=== PATIENT | female | born 1990 | race Caucasian/White ===

== ENCOUNTER 2017-04-13 05:37 | Inpatient (IN) | payer MEDICAID ==
--- NOTE | 2017-04-12 08:51 | HP ---
DATE OF ADMISSION: 04/13/2017 ADMISSION DIAGNOSES: 38 and 0/7th week intrauterine , twin gestation, history of previous section with desire for repeat section. HISTORY OF PRESENT ILLNESS: The patient is a 27-year-old, 6, para 3-0-2-3 white female, with a diamniotic twin gestation, who has been given an NATASHA of 04/27/2017, placing her at 38 and 0/7th weeks gestational age upon admission for an elective repeat section. The patient's NATASHA is set by certain last menstrual started which started on 07/21/2016, lasted for approximately 5 days. She was using no control at the time of conception. Cycles are regular, at q.28 days. The patient is confirmed to be at 38 and 0/7th weeks by multiple ultrasounds that were done through the . She is admitted for an elective repeat section having had 3 sections previously, 1st one being for failure to progress and the others being repeat sections. She has been assessed of the procedure, its risks, benefits, alternatives of care and followup. She appears to understand, wishes to proceed, and has signed the consent. 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 She has had 3 full-term children, largest baby being 9 pounds 2 ounces. She has had 2 miscarriages, one at 12 weeks' and one at 8 weeks in 2008 and 2012 respectively. Her sections occurred in 2009, 2010, and 2013 in [place], [place]. Her course has been significant for the fact that she has a twin gestation and has been followed closely with growth ultrasounds early on and testing during the last 8 weeks. She declined genetic testing. Her [place] depression screen score on 01/03/2017 was 2 out of a total of 30. She is group B Strep negative. She has a history of genital herpes and has been on acyclovir 400 mg p.o. t.i.d. since 36 weeks. She has not had any outbreaks during the course of the . She has been a participant in the centering program. Her testing has been unremarkable. Her course showed a 1st visit on 10/13/2014. Weight at that time was 185.4 pounds. She has gained 36.19 pounds over the course of the . Her vital signs have been stable throughout the . Fundal height growth has been appropriate for twin gestation. LABORATORY TESTING: Her blood is O positive. Antibody screen was negative. First visit lab showed a hemoglobin of 12.1 and a platelet of 283,000. Rubella titer showed immunity. RPR is nonreactive. Hepatitis B and HIV assays were negative as were her GC and chlamydia assays at first visit. Second trimester labs showed a hemoglobin which was mildly decreased to 11.2 g/dL. Platelets were normal at 228,000. One-hour glucose tolerance test was 101 - normal. Group B Strep screen was negative. ALLERGIES: None. CURRENT MEDICATIONS: 1. Acyclovir 400 mg p.o. t.i.d. prophylactically for history of genital herpes. 2. tablets daily. 3. DHEA tabs daily. 4. Folic acid 400 mcg supplemental daily. 5. Ferrous sulfate 325 mg daily. PAST MEDICAL HISTORY: Spontaneous miscarriage x2 as stated above. PAST SURGICAL HISTORY: 1. section x3, 2009, 2010, and 2013. 2. Torsion of right ovary with removal at 14 weeks during her 2nd . FAMILY HISTORY: Mother and father are alive and well. Maternal grandmother is alive with a history of diabetes and hypertension. Maternal grandfather is alive with heart problems and a history of heart attack. Paternal grandmother and paternal grandfather's medical history are not known. No significant abnormalities related to bleeding, blood clotting, anesthesia, . SOCIAL HISTORY: The patient is single. 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 Her significant other is Ramírez De La Rosa. They live in [place], [place]. She does not use any significant amounts of alcohol, drugs, or tobacco. She has a history of smoking previously and during the early part of the . REVIEW OF SYSTEMS: SKIN: Negative. CARDIOVASCULAR: No chest pain or exercise intolerance. RESPIRATORY: No infectious symptoms or shortness of breath. BREASTS: Changes associated with - patient does plan to nurse. GI: Negative. : Changes associated with with twins. MUSCULOSKELETAL: Some edema noted throughout the latter part of the in bilateral lower extremities. NEUROLOGICAL: Negative. PHYSICAL EXAMINATION: GENERAL: The patient is a well-developed, well-nourished, pleasant female, who appears somewhat tired but in no acute distress. She is alert and oriented x3 and appears to be a good historian. VITAL SIGNS: Blood pressure is 134/70, weight is 221.2 with first visit weight at 185.4 pounds. heart rates were 130 and 132. Her height is 5 feet 5 inches. SKIN: Warm and dry without lesions. HEENT, NECK, AND BACK: Within normal limits. LUNGS: Clear with good breath sounds in all lung guevara. CARDIOVASCULAR: Shows regular rate and rhythm without murmurs. BREASTS: Exam is deferred having been done at first visit, found to be normal. ABDOMEN: Protuberant with with fundal height of 45 cm. Baby is found to be in a vertex-vertex presentation at the time of her last ultrasound 2 days prior to this section. It had been consistently in that position. GENITAL: Done at the time of her group B Strep screen, not recently done. EXTREMITIES: Some edema, trace in amount, otherwise unremarkable. ASSESSMENT: 1. Diamniotic twin gestation at 38 and 0/7th weeks gestational age upon admission for an elective repeat section. The procedure, risks, benefits, alternatives of care and followup are discussed in detail with the patient. She appears to understand, wishes to proceed. 2. Risk factors for the include the following: History of section x3, distance from the hospital, increased weight, twin gestation. 3. History of miscarriage x2. 4. Rh positive status. 5. History of genital herpes simplex virus but with no outbreaks during the course of the and the patient is presently on prophylaxis with acyclovir. PLAN: 1. Repeat lower uterine segment transverse section through Pfannenstiel skin incision under spinal block, scheduled for 04/13/[address] [facility]. The procedure, risks, benefits, possible complications, and followup were discussed with the patient. This risk factor is listed, presented especially in light of the patient's previous 3 sections. Increased risk of placenta accreta also discussed with the patient. 2. DVT prophylaxis with SCDs. 3. Infection prophylaxis with Ancef 2 g IV preop. 4. Laboratory testing to consist of CBC and type and screen. MMODAL /[id number]
[~2017-04-13 05:37] MED LIST: Lactated Ringers 1,000 ML IV SCH; Sodium Chloride 0.9% 10 ML Syringe FLUSH PRN
[2017-04-13] MEDS ORDERED: Metoclopramide 10 MG/2 ML SDV IVPUSH ONE (06:00)
[2017-04-13] MEDS ORDERED: Citric Acid/Sodium Citrate Solution 30 ML Cup PO ONE (06:00)
[2017-04-13] MEDS ORDERED: Pneumococcal Polyvalent-23 Vaccine 0.5 ML SDV IM ONE (06:25)
[2017-04-13] MEDS ORDERED: Bupivacaine 0.5% 30 ML SDV ONE (06:26)
[2017-04-13] MEDS ORDERED: ceFAZolin 2 GM in Premix Bag 1 BAG IV ONE (06:30)
[2017-04-13] MEDS ORDERED: Morphine PF 10 MG/10 ML SDV ONE (06:40)
[2017-04-13] MEDS ORDERED: Oxytocin 10 Units/1 ML SDV ONE (06:42)
[2017-04-13] MEDS ORDERED: ceFAZolin 1 GM Vial ONE (06:42)
[2017-04-13] MEDS ORDERED: Lactated Ringers 2,000 ML ONE (06:42)
[2017-04-13] MEDS ORDERED: Dexamethasone 4 MG/ML SDV ONE (06:42)
[2017-04-13] MEDS ORDERED: Ondansetron 4 MG/2 ML SDV ONE (06:42)
[2017-04-13] MEDS ORDERED: Ketorolac 30 MG/ML SDV ONE (06:42)
[2017-04-13] MEDS ORDERED: Oxytocin/Lactated Ringers 10 UNIT/1,000 ML BAG IV SCH (07:00)
--- NOTE | 2017-04-13 07:09 | PCM.PREANE ---
Preanesthetic Assessment - Anesthesia/Transfusion/Family Hx Anesthesia History: Prior Anesthesia Without Reaction Family History of Anesthesia Reaction: No Transfusion History: No Prior Transfusion(s) - Review of Systems General: No Symptoms Pulmonary: No Symptoms Cardiovascular: No Symptoms Gastrointestinal: No Symptoms Neurological: No Symptoms Other: Reports: None - Physical Assessment NPO Status Date: 04/13/17 NPO Status Time: 05:00 (Sip of Tea) Pulse: 94 O2 Sat by Pulse Oximetry: 95 Respiratory Rate: 16 Blood Pressure: 135/85 Temperature: 36.6 C Height: 1.7 m Weight: 101.151 kg ASA Class: 2 Mental Status: Alert & Oriented x3 Airway Class: Mallampati = 1 Dentition: Reports: Normal Dentition Thyro-Mental Finger Breadths: 3 Mouth Opening Finger Breadths: 3 ROM/Head Extension: Full Lungs: Clear to Auscultation, Normal Respiratory Effort Cardiovascular: Regular Rate, Regular Rhythm - Lab Values: Laboratory Last Values WBC 9.45 K/mm3 (3.98-10.04) 04/11/17 15:14 RBC 4.06 M/mm3 (3.98-5.22) 04/11/17 15:14 Hgb 12.1 gm/L (11.2-15.7) 04/11/17 15:14 Hct 36.7 % (34.1-44.9) 04/11/17 15:14 MCV 90.4 fl (79.4-94.8) 04/11/17 15:14 MCH 29.8 pg (25.6-32.2) 04/11/17 15:14 MCHC 33.0 g/dl (32.2-35.5) 04/11/17 15:14 RDW Std Deviation 41.9 fL (36.4-46.3) 04/11/17 15:14 Plt Count 231 K/mm3 (182-369) 04/11/17 15:14 MPV 9.3 fl (9.4-12.3) L 04/11/17 15:14 Neut % (Auto) 72.6 % (34.0-71.1) H 04/11/17 15:14 Lymph % (Auto) 20.5 % (19.3-51.7) 04/11/17 15:14 Nye % (Auto) 5.8 % (4.7-12.5) 04/11/17 15:14 Eos % (Auto) 0.7 (0.7-5.8) 04/11/17 15:14 Baso % (Auto) 0.1 % (0.1-1.2) 04/11/17 15:14 Neut # (Auto) 6.85 K/mm3 (1.56-6.13) H 04/11/17 15:14 Lymph # (Auto) 1.94 K/mm3 (1.18-3.74) 04/11/17 15:14 Nye # (Auto) 0.55 K/mm3 (0.24-0.36) H 04/11/17 15:14 Eos # (Auto) 0.07 K/mm3 (0.04-0.36) 04/11/17 15:14 Baso # (Auto) 0.01 K/mm3 (0.01-0.08) 04/11/17 15:14 Blood Type O POSITIVE 04/11/17 15:14 Gel Antibody Screen Negative 04/11/17 15:14 - Allergies Allergies/Adverse Reactions: Allergies Allergy/AdvReac Type Severity Reaction Status Date / Time No Known Allergies Allergy Verified 04/13/17 05:46 - Anesthesia Plan Pre-Op Medication Ordered: Antacids - Acknowledgements Anesthesia Type Planned: Spinal Pt an Appropriate Candidate for the Planned Anesthesia: Yes Alternatives and Risks of Anesthesia Discussed w Pt/Guardian: Yes Pt/Guardian Understands and Agrees with Anesthesia Plan: Yes PreAnesthesia Questionnaire 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 Ovary torsion with removal - SUBSTANCE USE Smoking Status *Q: Former Smoker Tobacco Use Within Last Twelve Months: Cigarettes Recreational Drug Use History: No - HOME MEDS Home Medications: Home Meds Acyclovir 400 mg PO TID 03/19/17 [History] Ferrous Sulfate [Iron] 325 mg PO DAILY 03/19/17 [History] Folic Acid 0.4 mg PO DAILY 03/19/17 [History] Pnv No.122/Iron/Folic Acid [ Multi Tablet] 1 each PO DAILY 03/19/17 [ History] Prasterone (DHEA)/Calcium Carb [DHEA] 1 each PO DAILY 03/19/17 [History] - CURRENT (IN HOUSE) MEDS Current Meds: Current Medications Lactated Ringer's (Ringers, Lactated) 1,000 mls @ 125 mls/hr IV ASDIRECTED JOANIE Last Admin: 04/13/17 06:27 Dose: 125 mls/hr Oxytocin/Lactated Ringer's (Pitocin In Lr 10 Units/1,000 Ml) 10 unit in 1,000 mls @ 100 mls/hr IV ASDIRECTED JOANIE PRN Reason: Protocol Sodium Chloride (Saline Flush) 10 ml FLUSH ASDIRECTED PRN PRN Reason: Keep Vein Open Discontinued Medications Bupivacaine HCl (Marcaine 0.5%) Confirm Administered Dose 30 ml .ROUTE .STK-MED ONE Stop: 04/13/17 06:27 Cefazolin Sodium (Ancef) Confirm Administered Dose 2 gm .ROUTE .STK-MED ONE Stop: 04/13/17 06:43 Citric Acid/Sodium Citrate (Bicitra Solution) 30 ml PO ONETIME ONE Stop: 04/13/17 06:01 Last Admin: 04/13/17 06:48 Dose: 30 ml Dexamethasone (Dexamethasone) Confirm Administered Dose 4 mg .ROUTE .STK-MED ONE Stop: 04/13/17 06:43 Cefazolin Sodium/Dextrose 2 gm (/ Premix) 50 mls @ 100 mls/hr IV ONETIME ONE Stop: 04/13/17 06:59 Lactated Ringer's (Ringers, Lactated) Confirm Administered Dose 2,000 mls @ as directed .ROUTE .STK-MED ONE Stop: 04/13/17 06:43 Ketorolac Tromethamine (Toradol) Confirm Administered Dose 30 mg .ROUTE .STK- MED ONE Stop: 04/13/17 06:43 Metoclopramide HCl (Reglan) 10 mg IVPUSH ONETIME ONE Stop: 04/13/17 06:01 Last Admin: 04/13/17 06:49 Dose: 10 mg Ondansetron HCl (Zofran) Confirm Administered Dose 4 mg .ROUTE .STK-MED ONE Stop: 04/13/17 06:43 Oxytocin (Pitocin) Confirm Administered Dose 20 unit .ROUTE .STK-MED ONE Stop: 04/13/17 06:43 Pneumococcal Polyvalent Vaccine (Pneumovax 23) 0.5 ml IM .ONCE ONE Stop: 04/13/17 06:26
[2017-04-13] MEDS ORDERED: ePHEDrine 50 MG/ML SDV IVPUSH PRN ×2 (08:17→10:38)
[2017-04-13] MEDS ORDERED: diphenhydrAMINE 50 MG/ML SDV IVPUSH PRN ×2 (08:17→10:38)
[2017-04-13] MEDS ORDERED: ePHEDrine 50 MG/ML SDV ONE (08:18)
[2017-04-13] MEDS ORDERED: Phenylephrine 10 MG in Sodium Chloride 0.9% 99 ML IV SCH (08:30)
[2017-04-13] MEDS ORDERED: diphenhydrAMINE 50 MG/ML SDV ONE (08:35)
[2017-04-13] MEDS ORDERED: Lactated Ringers 1,000 ML ONE (08:53)
--- NOTE | 2017-04-13 08:55 | PCM.POSTAN ---
POST ANESTHESIA ASSESSMENT - MENTAL STATUS Mental Status: Alert, Oriented - VITAL SIGNS Pulse Rate: 75 SaO2: 100 Resp Rate: 20 Blood Pressure: 118/56 Temperature: 36.9 C - RESPIRATORY Respiratory Status: Respiratory Rate WNL, Airway Patent, O2 Saturation Stable, Supplemental Oxygen - CARDIOVASCULAR CV Status: Pulse Rate WNL, Blood Pressure Stable - GASTROINTESTINAL GI Status: No Symptoms - PAIN Pain Score: 0 - POST OP HYDRATION Hydration Status: Adequate & Stable - OBSERVATIONS Free Text/Narrative:: PVCs noted once intraop and once in PACU. Bigeminal, Unifocal, Jil denies any symptoms with PVCs. Dr. Louis aware.
--- NOTE | 2017-04-13 09:08 | PCM.SN ---
- Free Text/Narrative Note: Dr. Bishop called regarding bigeminal PVCs. Advised a 12 lead EKG and basic metabolic panel be obtained. Orders submitted. I will notify her when BMP is done.
--- NOTE | 2017-04-13 09:09 | PCM.OPNOTE ---
- General Post-Op/Procedure Note Date of Surgery/Procedure: 04/13/17 Operative Procedure(s): Repeat lower uterine segment transverse section through Pfannenstiel skin incision under spinal block. Findings: Patient had a diamniotic, dichorionic twin gestation with both twins in a vertex presentation. Both amniotic sacs contained clear amniotic fluid. The umbilical cords both had 3 vessels. Cervix was noted to be dilated approximately 2 cm which was adequate to allow egress of blood. Estimated blood loss was 500 mL. Surgery duration 55 minutes. Baby [id number] at 0757 hrs. on 04/13/2017-Apgars 8 and 8 -weight 6 lbs. 2 oz. Baby [id number] at 0757 hrs. on 04/13/2017-Apgars 8 and 8-weight 6 lbs. 0 oz. Pre Op Diagnosis: 1. 38-0/7 week intrauterine . 2. Twin gestation. 3. History of previous section 3 Post-Op Diagnosis: Same Anesthesia Technique: Spinal Other Anesthesia Type: Marcaine 0.5%local Primary Surgeon: Mauro Louis Secondary Surgeon: Clifford Oneal Anesthesia Provider: Danielle Looney Family [employer] Consumer Sciences Professor: Jyothi Torres Family [employer] Consumer [employer] Professor: Michelle Cain Reason Family And Consumer Sciences Professor Was Necessary: Retraction, patient safety, quality of care Role of Family And Consumer Sciences Professor: Retraction Pathology: Placentas Fluid Replacement, Intraop: 2,500 Output, Urine Amount: 100 EBL in mLs: 500 Drain/Tube Comments:: Indwelling bladder catheter Complications: None Condition: Good Free Text/Narrative:: Surgery duration: 55 minutes Procedure: Patient was transferred to the room and placed in a sitting position. Spinal anesthesia was administered. After confirmation of adequate anesthesia patient was placed in a supine position with a wedge under her right side to facilitate left lateral positioning. The patient was prepped and draped in usual fashion after Ybarra catheter was already placed . The anesthetic was checked and found to be adequate. 20 mL of Marcaine 0.5% was injected locally in the Pfannenstiel incision site. The Pfannenstiel skin incision was then made carried down to skin subcutaneous and fascial layers. The fascia was then undermined superiorly and inferiorly to allow for adequate operating room the recti muscles midline and preperitoneal fat was bluntly dissected. Peritoneal cavity was entered longitudinally. The vesicouterine peritoneum was then incised transversely and bladder flap was developed. Myometrium was incised transversely to the level of the amniotic sac. This incision was extended bilaterally in a blunt fashion. The first amniotic sac was then ruptured resulting clear amniotic fluid. A hand is placed in the low uterine segment and baby A's head was brought forth through the incision. The baby was completely delivered using fundal pressure in a routine fashion. The nose and mouth were bulb suctioned. Baby's cord was clamped x2 with straight clamp and cut and baby was handed off to attending gambling counsellor Dr Flores. The second amniotic sac was then ruptured resulting in clear amniotic fluid. Twin B presented in a cephalic presentation was delivered in a routine fashion with fundal pressure. Nose and mouth were bulb suctioned. Cord was clamped clamp 2 with curved hemostats and cut. Baby was handed off to Dr. Flores attending gambling counsellor. Both placentas were expressed after cord blood was obtained. Uterus was then exteriorized to allow for easier closure. The cervix was assessed and found to be dilated adequately to allow egress of blood. The uterus was closed in 2 layers. The first layer a running locked suture of 0 Monocryl, the second layer a running locked vertical mattress suture of 0 Monocryl. [id number] suture was placed at the left incision to control 1 bleeder. Hemostasis confirmed at this time. Sponge instrument needle counts are correct. The uterus was returned to the abdominal cavity and lateral gutters were cleared of blood. Once again sponge needle counts are correct. The anterior abdominal wall was closed with a #1 PDS suture from angle to angle. The subcutaneous area was found to be free of any bleeders. interrupted sutures of 3-0 Monocryl were used to reapproximate the subcutaneous layer.Skin was closed with a running subcuticular stitch of 3-0 Monocryl in a vertical mattress suture fashion using a Khanh needle. Prineo mesh/glue was then applied to further approximate the incision. It should be noted that patient received 2 g of Ancef preoperatively for infection prophylaxis and had Pitocin infused after delivery of the placenta to facilitate uterine contraction. She also had sequential compression stockings in place for DVT prophylaxis. Patient was discharged from the operating room in satisfactory condition.
[2017-04-13] MEDS ORDERED: Magnesium Sulfate/Water 2 GM in Premix Bag 1 BAG IV ONE (10:18)
[2017-04-13] MEDS ORDERED: Potassium Chloride 10% 20 MEQ/15 ML Soln 15 ML UD Cup PO ONE (10:19)
[2017-04-13] MEDS ORDERED: Dextrose 5%-Lactated Ringers 1,000 ML IV SCH (10:38)
[2017-04-13] MEDS ORDERED: Lanolin 100% Cream 7 GM Tube TOP PRN (10:38)
[2017-04-13] MEDS ORDERED: Naloxone 0.4 MG/ML SDV IVPUSH PRN (10:38)
[2017-04-13] MEDS ORDERED: Docusate Sodium 100 MG Cap PO PRN (10:38)
[2017-04-13] MEDS ORDERED: Ondansetron 4 MG/2 ML SDV IV PRN (10:38)
--- NOTE | 2017-04-13 11:12 | PCM.CONSN ---
- General Info Date of Service: 04/13/17 Admission Dx/Problem (Free Text): 27 year old female s/p C section at 38 weeks 0/7 days, G6, P 3-0-2-3 post op went into ventricular bigeminy. She subsequently went back into sinus rhythm before being taken back to her room. Lab studies were ordered by the DATA ENTRY REPRESENTATIVE who called the hospitalist service as requested by the primary. A ECG had been ordered, additionally BMP, Mg were also ordered. Her potassium and magnesium are being replaced. Follow up labs will be checked after supplementation. The patient reports no cardiac history; no recent change in meds; no change in diet. Functional Status: Reports: Urinating - Review of Systems General: Reports: Weakness HEENT: Reports: No Symptoms Pulmonary: Reports: No Symptoms Cardiovascular: Reports: No Symptoms Gastrointestinal: Reports: No Symptoms Genitourinary: Reports: No Symptoms Musculoskeletal: Reports: No Symptoms Skin: Reports: No Symptoms Neurological: Reports: No Symptoms Psychiatric: Reports: No Symptoms - Patient Data Vitals - Most Recent: Last Vital Signs Temp 37.1 C 04/13/17 09:43 Pulse 75 04/13/17 08:55 Resp 14 04/13/17 09:55 BP 131/82 04/13/17 09:55 Pulse Ox 95 04/13/17 09:55 Weight - Most Recent: 101.151 kg I&O - Last 24 Hours: Intake & Output 04/12/17 04/13/17 04/13/17 22:59 06:59 14:59 Intake Total 2800 Output Total 350 Balance 2450 Lab Results Last 24 Hours: Laboratory Results - last 24 hr 04/13/17 04/13/17 Range/Units 09:20 09:20 Sodium 140 (136-145) mEq/L Potassium 3.6 (3.5-5.1) mEq/L Chloride 106 (98-107) mEq/L Carbon Dioxide 25 (21-32) mEq/L Anion Gap 12.6 (5-15) BUN 7 (7-18) mg/dL Creatinine 0.7 (0.55-1.02) mg/dL Est Cr Clr Drug Dosing 118.43 mL/min Estimated GFR (MDRD) > 60 (>60) mL/min BUN/Creatinine Ratio 10.0 L (14-18) Glucose 101 (74-106) mg/dL Calcium 8.1 L (8.5-10.1) mg/dL Magnesium 1.5 L (1.8-2.4) mg/dl Med Orders - Current: Current Medications Diphenhydramine HCl (Benadryl) 25 mg IVPUSH Q6H PRN PRN Reason: Itching or Nausea Docusate Sodium (Colace) 100 mg PO Q12H PRN PRN Reason: Constipation Emollient Ointment (Lansinoh Hpa) 0 gm TOP ASDIRECTED PRN PRN Reason: Sore Nipples Ephedrine Sulfate (Ephedrine Sulfate) 5 mg IVPUSH SEECOMMENT PRN PRN Reason: Other Magnesium Sulfate 2 gm/ Premix 50 mls @ 25 mls/hr IV ONETIME ONE Stop: 04/13/17 12:17 Dextrose/Lactated Ringer's (Dextrose 5%-Lactated Ringers) 1,000 mls @ 125 mls/ hr IV ASDIRECTED JOANIE Stop: 04/13/17 18:37 Ibuprofen (Motrin) 800 mg PO Q8H JOANIE Naloxone HCl (Narcan) 0.1 mg IVPUSH SEECOMMENT PRN PRN Reason: Respiratory Depression Ondansetron HCl (Zofran) 4 mg IV Q4H PRN PRN Reason: Nausea/Vomiting Oxycodone/Acetaminophen (Percocet 325-5 Mg) 2 tab PO Q4H PRN PRN Reason: Pain (moderate 4-6) Prenat Multivit/[place]/Iron/Folic Ac ( Plus Iron) 1 each PO DAILY [facility] Simethicone (Simethicone) 80 mg PO PCBED [facility] Discontinued Medications Bupivacaine HCl (Marcaine 0.5%) Confirm Administered Dose 30 ml .ROUTE .STK-MED ONE Stop: 04/13/17 06:27 Last Admin: 04/13/17 07:52 Dose: 20 ml Cefazolin Sodium (Ancef) Confirm Administered Dose 2 gm .ROUTE .STK-MED ONE Stop: 04/13/17 06:43 Citric Acid/Sodium Citrate (Bicitra Solution) 30 ml PO ONETIME ONE Stop: 04/13/17 06:01 Last Admin: 04/13/17 06:48 Dose: 30 ml Dexamethasone (Dexamethasone) Confirm Administered Dose 4 mg .ROUTE .STK-MED ONE Stop: 04/13/17 06:43 Diphenhydramine HCl (Benadryl) 25 mg IVPUSH Q6H PRN PRN Reason: Pruritis Diphenhydramine HCl (Benadryl) Confirm Administered Dose 50 mg .ROUTE .STK-MED ONE Stop: 04/13/17 08:36 Ephedrine Sulfate (Ephedrine Sulfate) Confirm Administered Dose 50 mg .ROUTE .STK-MED ONE Stop: 04/13/17 08:19 Ephedrine Sulfate (Ephedrine Sulfate) 5 mg IVPUSH ASDIRECTED PRN PRN Reason: Hypotension Glycopyrrolate () Confirm Administered Dose 1 mg .ROUTE .STK-MED ONE Stop: 04/13/17 08:18 Cefazolin Sodium/Dextrose 2 gm (/ Premix) 50 mls @ 100 mls/hr IV ONETIME ONE Stop: 04/13/17 06:59 Lactated Ringer's (Ringers, Lactated) 1,000 mls @ 125 mls/hr IV ASDIRECTED JOANIE Last Admin: 04/13/17 06:27 Dose: 125 mls/hr Oxytocin/Lactated Ringer's (Pitocin In Lr 10 Units/1,000 Ml) 10 unit in 1,000 mls @ 100 mls/hr IV ASDIRECTED JOANIE PRN Reason: Protocol Lactated Ringer's (Ringers, Lactated) Confirm Administered Dose 2,000 mls @ as directed .ROUTE .STK-MED ONE Stop: 04/13/17 06:43 Phenylephrine HCl 10 mg/ (Sodium Chloride) 100 mls @ 24 mls/hr IV TITRATE JOANIE; 40 MCG/MIN PRN Reason: Protocol Lactated Ringer's (Ringers, Lactated) Confirm Administered Dose 1,000 mls @ as directed .ROUTE .STK-MED ONE Stop: 04/13/17 08:54 Ketorolac Tromethamine (Toradol) Confirm Administered Dose 30 mg .ROUTE .STK- MED ONE Stop: 04/13/17 06:43 Metoclopramide HCl (Reglan) 10 mg IVPUSH ONETIME ONE Stop: 04/13/17 06:01 Last Admin: 04/13/17 06:49 Dose: 10 mg Ondansetron HCl (Zofran) Confirm Administered Dose 4 mg .ROUTE .STK-MED ONE Stop: 04/13/17 06:43 Oxytocin (Pitocin) Confirm Administered Dose 20 unit .ROUTE .STK-MED ONE Stop: 04/13/17 06:43 Pneumococcal Polyvalent Vaccine (Pneumovax 23) 0.5 ml IM .ONCE ONE Stop: 04/13/17 06:26 Potassium Chloride (Potassium Chloride Solution) 20 meq PO ONETIME ONE Stop: 04/13/17 10:20 Sodium Chloride (Saline Flush) 10 ml FLUSH ASDIRECTED PRN PRN Reason: Keep Vein Open - Exam Quality Assessment: Supplemental Oxygen, DVT Prophylaxis General: Sedated HEENT: Pupils Equal, Pupils Reactive, EOMI Neck: Trachea Midline, No JVD Lungs: Normal Respiratory Effort Cardiovascular: Regular Rate, Regular Rhythm GI/Abdominal Exam: Normal Bowel Sounds, Soft, Non-Tender (minimal tenderness), No Organomegaly, No Distention (Female) Exam: Deferred Back Exam: Normal Inspection Extremities: Normal Inspection Skin: Warm Neurological: No New Focal Deficit Psy/Mental Status: Other (sedated) Consult PN Assessment/Plan POD#: 0 Procedures: Procedures ASSAY OF PROGESTERONE (09/15/16) BLOOD TYPING SEROLOGIC ABO (10/13/16) BLOOD TYPING SEROLOGIC RH(D) (10/13/16) CHORIONIC GONADOTROPIN TEST (09/15/16) CHYLMD TRACH DNA AMP PROBE (10/13/16) COMPLETE CBC W/AUTO DIFF WBC (01/17/17) BIOPHYS PROFIL W/O NST (04/04/17) NON-STRESS TEST (04/04/17) GLUCOSE TEST (01/17/17) HEPATITIS B SURFACE AG IA (10/13/16) N.GONORRHOEAE DNA AMP PROB (10/13/16) OB US >/= 14 WKS ADDL FETUS (12/20/16) OB US >/= 14 WKS SNGL FETUS (12/20/16) OB US FOLLOW-UP PER FETUS (04/04/17) RBC ANTIBODY SCREEN (10/13/16) ROUTINE VENIPUNCTURE (01/17/17) RUBELLA ANTIBODY (10/13/16) STREP B DNA AMP PROBE (03/28/17) SYPHILIS TEST NON-TREP QUAL (10/13/16) TRANSVAGINAL US OBSTETRIC (09/15/16) URINALYSIS AUTO W/O SCOPE (03/28/17) URINALYSIS AUTO W/SCOPE (10/04/16) URINE CULTURE/COLONY COUNT (10/13/16) (1) Status post section SNOMED Code(s): 125283048 Code(s): Z98.891 - HISTORY OF UTERINE SCAR FROM PREVIOUS SURGERY Current Visit: Yes (2) Ventricular bigeminy SNOMED Code(s): 29702581 Code(s): I49.9 - CARDIAC ARRHYTHMIA, UNSPECIFIED Current Visit: Yes Problem List Initiated/Reviewed/Updated: Yes Plan: Impression: Post C Section, 38 weeks 0/7 twin gestation Ventricular Bigeminy Abnormal electrolytes Plan: Replace K, Mg, correct to normal range Telemetry ECG in the am
--- NOTE | 2017-04-13 16:07 | PCM.SN ---
- Free Text/Narrative Note: Laboratory studies show low magnesium level. Patient is now in sinus rhythm. Dr. Bishop called and orders received to replace magnesium IV and Potassium chloride PO, a 12 lead EKG and Comprehensive metabolic panel will be obtained in the morning. Dr. Louis updated. Dr. Bishop aware of consult.
[2017-04-13] MEDS: Simethicone 80 MG Tab.Chew PO SCH ×3 (16:25→21:01)
[2017-04-13] MEDS: Ibuprofen 800 MG Tab PO SCH ×2 (17:16→21:00)
[2017-04-13] MEDS: Prenatal Multivitamin with Calcium/Folic Acid/Iron Tab PO SCH (17:16)
[2017-04-13] MEDS ORDERED: Lactated Ringers 1,000 ML IV ONE (21:09)
[2017-04-13] MEDS ORDERED: Lactated Ringers 1,000 ML IV SCH (23:00)
[2017-04-14] MEDS: Simethicone 80 MG Tab.Chew PO SCH ×5 (04:00→23:25)
[2017-04-14] MEDS: Ibuprofen 800 MG Tab PO SCH ×4 (07:03→21:55)
[2017-04-14] MEDS ORDERED: Magnesium Sulfate/Water 2 GM in Premix Bag 1 BAG IV ONE (08:45)
--- NOTE | 2017-04-14 09:00 | PCM.SN ---
- Free Text/Narrative Note: Subjective: The patient is a 27-yo female s/p 04/14/17 with diamniotic twins. She delivered at 38 weeks 0/7 days gestation. Following the , the patient went into ventricular bigemany. She has been in and out of this rhythm since yesterday post-op. She was seen by Dr. Bishop, who ordered K and Mg replacement per electrolyte imbalance. See consultation note by Dr. Bishop. The patient has been clinically asymptomatic. She will have an ecg this morning. The patient also has anxiety, but appears to be doing well. She is accompanied by her . Objective: The patient is alert and oriented. RRR. Lungs are clear to auscultation. Incision site is intact and dry. Some dried blood beneath the incision. Incision is under a fold. Leg edema is 1+. Assessment: 1. Post-operative day 1 2. Ventricular bigeminy Plan 1. The patient can shower this afternoon and allow water to wash over the incision site. No scrubbing of the incision site. Since the incision is under a fold of skin, I encouraged her to keep it dry. She will go for a walk today. It is ideal that she continue pain management with ibuprofen only. 2. 2g Mg Sulfate. Will recheck Mg and CBC in the am. ECG ordered for this morning.
[2017-04-14] MEDS ORDERED: Magnesium Sulfate/Water 4 GM in Premix Bag 1 BAG IV ONE ×2 (09:32→20:00)
[2017-04-14] MEDS: Prenatal Multivitamin with Calcium/Folic Acid/Iron Tab PO SCH (10:44)
--- NOTE | 2017-04-14 12:22 | PCM.CONSN ---
- General Info Date of Service: 04/14/17 Functional Status: Reports: Tolerating Diet, Ambulating, Urinating - Review of Systems General: Reports: No Symptoms HEENT: Reports: No Symptoms Pulmonary: Reports: No Symptoms Cardiovascular: Reports: No Symptoms Gastrointestinal: Reports: No Symptoms Genitourinary: Reports: No Symptoms Musculoskeletal: Reports: No Symptoms Skin: Reports: No Symptoms Neurological: Reports: No Symptoms Psychiatric: Reports: No Symptoms - Patient Data Vitals - Most Recent: Last Vital Signs Temp 36.5 C 04/14/17 11:35 Pulse 64 04/14/17 11:35 Resp 18 04/14/17 11:35 BP 116/51 L 04/14/17 11:35 Pulse Ox 98 04/14/17 07:00 Weight - Most Recent: 101.151 kg I&O - Last 24 Hours: Intake & Output 04/13/17 04/14/17 04/14/17 22:59 06:59 14:59 Intake Total 1630 3850 240 Output Total 450 1600 Balance 1180 2250 240 Lab Results Last 24 Hours: Laboratory Results - last 24 hr 04/14/17 04/14/17 04/14/17 Range/Units 07:05 07:05 07:05 WBC 7.65 (3.98-10.04) K/mm3 RBC 3.06 L (3.98-5.22) M/mm3 Hgb 9.1 L (11.2-15.7) gm/L Hct 28.0 L (34.1-44.9) % MCV 91.5 (79.4-94.8) fl MCH 29.7 (25.6-32.2) pg MCHC 32.5 (32.2-35.5) g/dl RDW Std Deviation 40.0 (36.4-46.3) fL Plt Count 147 L (182-369) K/mm3 MPV 9.5 (9.4-12.3) fl Neut % (Auto) 62.1 (34.0-71.1) % Lymph % (Auto) 27.5 (19.3-51.7) % [place] % (Auto) 8.4 (4.7-12.5) % Eos % (Auto) 1.4 (0.7-5.8) Baso % (Auto) 0.3 (0.1-1.2) % Neut # (Auto) 4.76 (1.56-6.13) K/mm3 Lymph # (Auto) 2.10 (1.18-3.74) K/mm3 [place] # (Auto) 0.64 H (0.24-0.36) K/mm3 Eos # (Auto) 0.11 (0.04-0.36) K/mm3 Baso # (Auto) 0.02 (0.01-0.08) K/mm3 Sodium 140 (136-145) mEq/L Potassium 4.0 (3.5-5.1) mEq/L Chloride 107 (98-107) mEq/L Carbon Dioxide 26 (21-32) mEq/L Anion Gap 11.0 (5-15) BUN 6 L (7-18) mg/dL Creatinine 0.6 (0.55-1.02) mg/dL Est Cr Clr Drug Dosing 138.17 mL/min Estimated GFR (MDRD) > 60 (>60) mL/min BUN/Creatinine Ratio 10.0 L (14-18) Glucose 90 (74-106) mg/dL Calcium 8.2 L (8.5-10.1) mg/dL Magnesium 1.5 L (1.8-2.4) mg/dl Total Bilirubin 0.2 (0.2-1.0) mg/dL AST 18 (15-37) U/L ALT 16 (14-59) U/L Alkaline Phosphatase 95 (46-116) U/L Total Protein 4.9 L (6.4-8.2) g/dl Albumin 1.7 L (3.4-5.0) g/dl Globulin 3.2 gm/dL Albumin/Globulin Ratio 0.5 L (1-2) Med Orders - Current: Current Medications Diphenhydramine HCl (Benadryl) 25 mg IVPUSH Q6H PRN PRN Reason: Itching or Nausea Docusate Sodium (Colace) 100 mg PO Q12H PRN PRN Reason: Constipation Emollient Ointment (Lansinoh Hpa) 0 gm TOP ASDIRECTED PRN PRN Reason: Sore Nipples Ephedrine Sulfate (Ephedrine Sulfate) 5 mg IVPUSH SEECOMMENT PRN PRN Reason: Other Magnesium Sulfate 4 gm/ Premix 100 mls @ 50 mls/hr IV ONETIME ONE Stop: 04/14/17 21:59 Ibuprofen (Motrin) 800 mg PO Q8H [facility] Last Admin: 04/14/17 07:03 Dose: 800 mg Naloxone HCl (Narcan) 0.1 mg IVPUSH SEECOMMENT PRN PRN Reason: Respiratory Depression Ondansetron HCl (Zofran) 4 mg IV Q4H PRN PRN Reason: Nausea/Vomiting Last Admin: 04/13/17 20:57 Dose: 4 mg Oxycodone/Acetaminophen (Percocet 325-5 Mg) 2 tab PO Q4H PRN PRN Reason: Pain (moderate 4-6) Prenat Multivit/[employer]/Iron/Folic Ac ( Plus Iron) 1 each PO DAILY [facility] Last Admin: 04/14/17 10:44 Dose: 1 each Simethicone (Simethicone) 80 mg PO PCBED [facility] Last Admin: 04/14/17 10:44 Dose: 80 mg Discontinued Medications Bupivacaine HCl (Marcaine 0.5%) Confirm Administered Dose 30 ml .ROUTE .STK-MED ONE Stop: 04/13/17 06:27 Last Admin: 04/13/17 07:52 Dose: 20 ml Cefazolin Sodium (Ancef) Confirm Administered Dose 2 gm .ROUTE .STK-MED ONE Stop: 04/13/17 06:43 Citric Acid/Sodium Citrate (Bicitra Solution) 30 ml PO ONETIME ONE Stop: 04/13/17 06:01 Last Admin: 04/13/17 06:48 Dose: 30 ml Dexamethasone (Dexamethasone) Confirm Administered Dose 4 mg .ROUTE .STK-MED ONE Stop: 04/13/17 06:43 Diphenhydramine HCl (Benadryl) 25 mg IVPUSH Q6H PRN PRN Reason: Pruritis Diphenhydramine HCl (Benadryl) Confirm Administered Dose 50 mg .ROUTE .STK-MED ONE Stop: 04/13/17 08:36 Ephedrine Sulfate (Ephedrine Sulfate) Confirm Administered Dose 50 mg .ROUTE .STK-MED ONE Stop: 04/13/17 08:19 Ephedrine Sulfate (Ephedrine Sulfate) 5 mg IVPUSH ASDIRECTED PRN PRN Reason: Hypotension Glycopyrrolate () Confirm Administered Dose 1 mg .ROUTE .STK-MED ONE Stop: 04/13/17 08:18 Cefazolin Sodium/Dextrose 2 gm (/ Premix) 50 mls @ 100 mls/hr IV ONETIME ONE Stop: 04/13/17 06:59 Last Admin: 04/13/17 17:17 Dose: Not Given Lactated Ringer's (Ringers, Lactated) 1,000 mls @ 125 mls/hr IV ASDIRECTED [facility] Last Admin: 04/13/17 06:27 Dose: 125 mls/hr Oxytocin/Lactated Ringer's (Pitocin In Lr 10 Units/1,000 Ml) 10 unit in 1,000 mls @ 100 mls/hr IV ASDIRECTED [facility] PRN Reason: Protocol Lactated Ringer's (Ringers, Lactated) Confirm Administered Dose 2,000 mls @ as directed .ROUTE .STK-MED ONE Stop: 04/13/17 06:43 Phenylephrine HCl 10 mg/ (Sodium Chloride) 100 mls @ 24 mls/hr IV TITRATE JOANIE; 40 MCG/MIN PRN Reason: Protocol Lactated Ringer's (Ringers, Lactated) Confirm Administered Dose 1,000 mls @ as directed .ROUTE .STK-MED ONE Stop: 04/13/17 08:54 Magnesium Sulfate 2 gm/ Premix 50 mls @ 25 mls/hr IV ONETIME ONE Stop: 04/13/17 12:17 Last Admin: 04/13/17 11:25 Dose: 25 mls/hr Dextrose/Lactated Ringer's (Dextrose 5%-Lactated Ringers) 1,000 mls @ 125 mls/ hr IV ASDIRECTED [facility] Stop: 04/13/17 18:37 Last Admin: 04/13/17 16:25 Dose: 125 mls/hr Lactated Ringer's (Ringers, Lactated) 1,000 mls @ 999 mls/hr IV .BOLUS ONE Stop: 04/13/17 22:09 Last Admin: 04/13/17 21:18 Dose: 999 mls/hr Lactated Ringer's (Ringers, Lactated) 1,000 mls @ 150 mls/hr IV ASDIRECTED [facility] Stop: 04/14/17 08:00 Last Admin: 04/13/17 23:14 Dose: 150 mls/hr Magnesium Sulfate 2 gm/ Premix 50 mls @ 25 mls/hr IV ONETIME ONE Stop: 04/14/17 10:44 Last Admin: 04/14/17 10:41 Dose: 25 mls/hr Magnesium Sulfate 4 gm/ Premix 100 mls @ 50 mls/hr IV ONETIME ONE Stop: 04/14/17 11:31 Ibuprofen (Motrin) 800 mg PO Q8H JOANIE Last Admin: 04/14/17 10:45 Dose: Not Given Ketorolac Tromethamine (Toradol) Confirm Administered Dose 30 mg .ROUTE .STK- MED ONE Stop: 04/13/17 06:43 Metoclopramide HCl (Reglan) 10 mg IVPUSH ONETIME ONE Stop: 04/13/17 06:01 Last Admin: 04/13/17 06:49 Dose: 10 mg Ondansetron HCl (Zofran) Confirm Administered Dose 4 mg .ROUTE .STK-MED ONE Stop: 04/13/17 06:43 Oxytocin (Pitocin) Confirm Administered Dose 20 unit .ROUTE .STK-MED ONE Stop: 04/13/17 06:43 Pneumococcal Polyvalent Vaccine (Pneumovax 23) 0.5 ml IM .ONCE ONE Stop: 04/13/17 06:26 Potassium Chloride (Potassium Chloride Solution) 20 meq PO ONETIME ONE Stop: 04/13/17 10:20 Last Admin: 04/13/17 11:26 Dose: 20 meq Sodium Chloride (Saline Flush) 10 ml FLUSH ASDIRECTED PRN PRN Reason: Keep Vein Open - Exam Quality Assessment: DVT Prophylaxis General: Alert, Oriented, Cooperative, No Acute Distress HEENT: Pupils Equal, Pupils Reactive, EOMI Neck: Supple, Trachea Midline, No JVD Lungs: Normal Respiratory Effort Cardiovascular: Regular Rate, Regular Rhythm GI/Abdominal Exam: Normal Bowel Sounds, Soft, Non-Tender, No Organomegaly, No Distention (Female) Exam: Deferred Back Exam: Normal Inspection Extremities: Normal Inspection, Normal Range of Motion Skin: Warm Neurological: No New Focal Deficit Psy/Mental Status: Alert, Normal Affect, Normal Mood Consult PN Assessment/Plan POD#: 1 Procedures: Procedures ASSAY OF PROGESTERONE (09/15/16) BLOOD TYPING SEROLOGIC ABO (10/13/16) BLOOD TYPING SEROLOGIC RH(D) (10/13/16) CHORIONIC GONADOTROPIN TEST (09/15/16) CHYLMD TRACH DNA AMP PROBE (10/13/16) COMPLETE CBC W/AUTO DIFF WBC (01/17/17) BIOPHYS PROFIL W/O NST (04/11/17) NON-STRESS TEST (04/04/17) GLUCOSE TEST (01/17/17) HEPATITIS B SURFACE AG IA (10/13/16) N.GONORRHOEAE DNA AMP PROB (10/13/16) OB US >/= 14 WKS ADDL FETUS (12/20/16) OB US >/= 14 WKS SNGL FETUS (12/20/16) OB US FOLLOW-UP PER [facility] (04/11/17) RBC ANTIBODY SCREEN (10/13/16) ROUTINE VENIPUNCTURE (01/17/17) RUBELLA ANTIBODY (10/13/16) STREP B DNA AMP PROBE (03/28/17) SYPHILIS TEST NON-TREP QUAL (10/13/16) TRANSVAGINAL US OBSTETRIC (09/15/16) URINALYSIS AUTO W/O SCOPE (04/11/17) URINALYSIS AUTO W/SCOPE (10/04/16) URINE CULTURE/COLONY COUNT (10/13/16) (1) Status post section SNOMED Code(s): 887048753 Code(s): Z98.891 - HISTORY OF UTERINE SCAR FROM PREVIOUS SURGERY Current Visit: Yes (2) Ventricular bigeminy SNOMED Code(s): 46348731 Code(s): I49.9 - CARDIAC ARRHYTHMIA, UNSPECIFIED Current Visit: Yes Problem List Initiated/Reviewed/Updated: Yes My Orders Last 24 Hours: My Active Orders 04/14/17 20:00 Magnesium Sulfate/Water [Magnesium Sulfate 4 GM in Water 100 ML] 4 gm Premix Bag 1 bag IV ONETIME Plan: Impression/Plan: Ventricular Bigeminy-->resolved Abnormal electrolytes, replaced. DC home with MgO 400 mg BID Holter Monitor for 24 hours re: Ventricular ectopy
--- NOTE | 2017-04-14 20:16 | PCM48HPAN ---
Post Anesthesia Note - EVALUATION WITHIN 48HRS OF ANESTHETIC Vital Signs in Normal Range: Yes Patient Participated in Evaluation: Yes Respiratory Function Stable: Yes Airway Patent: Yes Cardiovascular Function Stable: Yes Hydration Status Stable: Yes Pain Control Satisfactory: Yes Nausea and Vomiting Control Satisfactory: Yes Mental Status Recovered: Yes - COMMENTS/OBSERVATIONS Free Text/Narrative:: Telemetry report via nurse states irritability still present with presence of PVC's. Patient continues to receive magnesium IV.
[2017-04-14] MEDS: Acetaminophen/oxyCODONE 325-5 MG Tab PO PRN (20:28)
[2017-04-14] MEDS ORDERED: Zolpidem 10 MG Tab PO PRN (21:35)
[2017-04-15] MEDS: Ibuprofen 800 MG Tab PO SCH ×3 (06:45→22:59)
--- NOTE | 2017-04-15 09:31 | PCM.SN ---
- Free Text/Narrative Note: Patient may be discharged per post C section protocol, has two prescription: MgO 400 mg bid; Holter monitor re: Jackieemsiena. Would also check BMP/Mg level on scheduled follow up visit. Will sign off, thank you for the consult.
[2017-04-15] MEDS: Simethicone 80 MG Tab.Chew PO SCH ×4 (09:56→22:59)
[2017-04-15] MEDS: Prenatal Multivitamin with Calcium/Folic Acid/Iron Tab PO SCH (09:56)
--- NOTE | 2017-04-15 11:24 | PCM.SN ---
- Free Text/Narrative Note: Patient is feeling fine today on post operative day 2. Pain is well-controlled. She has had a normalization of her heart rhythm. Magnesium level has come up to normal range after a 6 g bolus of magnesium sulfate yesterday. She is voiding well, ambulating well and nursing is going well. Abdomen is soft, nontender, patient has some sticking together of the prineo mesh. Incision appears dry, and intact and without evidence of hematoma, seroma or infection. Patient's vital signs stable. Hemoglobin has increased to 10.1 from 9.1 yesterday. Assessment: Postoperative day one status post done for twin gestation with normal recovery. Plan: Routine care. Home tomorrow. The DC IV and monitoring.
[2017-04-15] MEDS: Acetaminophen/oxyCODONE 325-5 MG Tab PO PRN ×2 (11:25→23:00)
--- NOTE | 2017-04-16 09:32 | PCM.DCSUM1 ---
Discharge Summary - Hospital Course Free Text/Narrative:: Jil was admitted on 04/13/2017 for elective repeat section at 38-0/7 weeks gestation. She has a history of previous section 3. The procedure, risks, benefits, possible complications and follow-up were discussed in detail the patient. She appears to understand and wish to proceed. Please see admission history and physical for details. Patient had a diamniotic, dichorionic twin gestation with both twins in a vertex presentation. section was done under spinal anesthesia. Both amniotic sacs contained clear amniotic fluid. The umbilical cords both had 3 vessels. Cervix was noted to be dilated approximately 2 cm which was adequate to allow egress of blood. Estimated blood loss was 500 mL. Surgery duration 55 minutes. Baby [id number] at 0757 hrs. on 04/13/2017-Apgars 8 and 8 -weight 6 lbs. 2 oz. Baby [id number] at 0757 hrs. on 04/13/2017-Apgars 8 and 8-weight 6 lbs. 0 oz. During the course of her late operative course and early postoperative course patient's noted to have a bigeminal rhythm to her heartbeat. Consultation was made with Dr. Bishop-hospitalist and recommendation was to evaluate magnesium level which did return all. Over the course of next 2 days patient was given supplemental progesterone with a total of 8 g given over about 24 hours. With this her magnesium level improved to normal and the bigeminal rhythm subsided. Throughout the course of that entire time. Patient was totally asymptomatic. Her vital signs are stable throughout the postoperative course. Her hemoglobin initially was 9.1 on first postoperative day and increase to 10.1 on the second day. Patient has made good bowel, bladder and ambulatory at recovery. She is doing well. She desires to be discharged. She is nursing both babies without problems. She has nursed before. - Discharge Data Discharge Date: 04/16/17 Discharge Disposition: Home, Self-Care 01 Condition: Good - Patient Summary/Data Operative Procedure(s) Performed: Repeat lower uterine segment transverse section through Pfannenstiel skin incision under spinal block. Consults: Consultations 04/13/17 10:59 Consult to Physician [CONS] Routine 04/14/17 21:37 Consult to Factory Representative [CONS] Routine - Patient Instructions Diet: Regular Diet as Tolerated (Nursing diet with increased calories and calcium as recommended.) Activity: As Tolerated (No lifting greater than 15 pounds, driving a car 1 week. No intercourse or tampons until seen back) Driving: Do Not Drive Showering/Bathing: May Shower Wound/Incision Care: Keep Operative Site/Wound Site Clean and Dry Notify Provider of: Fever, Increased Pain, Swelling and Redness, Drainage, Nausea and/or Vomiting - Discharge Plan Home Medications: Home Meds Pnv No.122/Iron/Folic Acid [ Multi Tablet] 1 each PO DAILY 03/19/17 [ History] Acetaminophen/oxyCODONE [Percocet 325-5 MG] 2 tab PO Q4H PRN #30 tablet [Rx] Ibuprofen [IJD: Ibuprofen] 600 mg PO Q4H PRN #30 tablet 04/16/17 [Rx] Patient Handouts: Smoking Cessation, Tips for Success, [id number], Smoking Hazards, and Mastitis, Home Care Instructions for Mom, Breast Engorgement Referrals: Mauro Louis MD [Physician] - (Return to clinicDr. Louis2 weeks.) - Discharge Summary/Plan Comment DC Time >30 min.: No Discharge Summary/Plan Comment: Discharge instructions: 1. Discharge home 2. Diet, activity and follow-up discussed with patient. Recommend nursing diet with increased calories and calcium. 3. Precautions given concern increased pain, bleeding, temperature, signs/ symptoms of DVT/PE. 4. Medications per home medication was printed, discussed with and given to the patient. 5. Return to clinic-Dr. Louis--L[place] in 2 weeks. Diagnosis: Term -delivered Condition: Good - Patient Data Vitals - Most Recent: Last Vital Signs Temp 36.6 C 04/15/17 20:10 Pulse 81 04/15/17 20:10 Resp 18 04/15/17 20:10 BP 136/78 04/15/17 20:10 Pulse Ox 96 04/15/17 20:10 Weight - Most Recent: 101.151 kg I&O - Last 24 hours: Intake & Output 04/15/17 04/16/17 04/16/17 22:59 06:59 14:59 Intake Total 360 Balance 360 Med Orders - Current: Current Medications Diphenhydramine HCl (Benadryl) 25 mg IVPUSH Q6H PRN PRN Reason: Itching or Nausea Docusate Sodium (Colace) 100 mg PO Q12H PRN PRN Reason: Constipation Emollient Ointment (Lansinoh Hpa) 0 gm TOP ASDIRECTED PRN PRN Reason: Sore Nipples Ephedrine Sulfate (Ephedrine Sulfate) 5 mg IVPUSH SEECOMMENT PRN PRN Reason: Other Ibuprofen (Motrin) 800 mg PO Q8H [facility] Last Admin: 04/15/17 22:59 Dose: 800 mg Naloxone HCl (Narcan) 0.1 mg IVPUSH SEECOMMENT PRN PRN Reason: Respiratory Depression Ondansetron HCl (Zofran) 4 mg IV Q4H PRN PRN Reason: Nausea/Vomiting Last Admin: 04/13/17 20:57 Dose: 4 mg Oxycodone/Acetaminophen (Percocet 325-5 Mg) 2 tab PO Q4H PRN PRN Reason: Pain (moderate 4-6) Last Admin: 04/15/17 23:00 Dose: 1 tab Prenat Multivit/[place]/Iron/Folic Ac ( Plus Iron) 1 each PO DAILY [facility] Last Admin: 04/15/17 09:56 Dose: 1 each Simethicone (Simethicone) 80 mg PO PCBED [facility] Last Admin: 04/15/17 22:59 Dose: 80 mg Zolpidem Tartrate (Ambien) 10 mg PO BEDTIME PRN PRN Reason: Sleep Last Admin: 04/14/17 23:25 Dose: 10 mg Discontinued Medications Bupivacaine HCl (Marcaine 0.5%) Confirm Administered Dose 30 ml .ROUTE .STK-MED ONE Stop: 04/13/17 06:27 Last Admin: 04/13/17 07:52 Dose: 20 ml Cefazolin Sodium (Ancef) Confirm Administered Dose 2 gm .ROUTE .STK-MED ONE Stop: 04/13/17 06:43 Citric Acid/Sodium Citrate (Bicitra Solution) 30 ml PO ONETIME ONE Stop: 04/13/17 06:01 Last Admin: 04/13/17 06:48 Dose: 30 ml Dexamethasone (Dexamethasone) Confirm Administered Dose 4 mg .ROUTE .STK-MED ONE Stop: 04/13/17 06:43 Diphenhydramine HCl (Benadryl) 25 mg IVPUSH Q6H PRN PRN Reason: Pruritis Diphenhydramine HCl (Benadryl) Confirm Administered Dose 50 mg .ROUTE .STK-MED ONE Stop: 04/13/17 08:36 Ephedrine Sulfate (Ephedrine Sulfate) Confirm Administered Dose 50 mg .ROUTE .STK-MED ONE Stop: 04/13/17 08:19 Ephedrine Sulfate (Ephedrine Sulfate) 5 mg IVPUSH ASDIRECTED PRN PRN Reason: Hypotension Glycopyrrolate () Confirm Administered Dose 1 mg .ROUTE .STK-MED ONE Stop: 04/13/17 08:18 Cefazolin Sodium/Dextrose 2 gm (/ Premix) 50 mls @ 100 mls/hr IV ONETIME ONE Stop: 04/13/17 06:59 Last Admin: 04/13/17 17:17 Dose: Not Given Lactated Ringer's (Ringers, Lactated) 1,000 mls @ 125 mls/hr IV ASDIRECTED [facility] Last Admin: 04/13/17 06:27 Dose: 125 mls/hr Oxytocin/Lactated Ringer's (Pitocin In Lr 10 Units/1,000 Ml) 10 unit in 1,000 mls @ 100 mls/hr IV ASDIRECTED JOANIE PRN Reason: Protocol Lactated Ringer's (Ringers, Lactated) Confirm Administered Dose 2,000 mls @ as directed .ROUTE .ST-MED ONE Stop: 04/13/17 06:43 Phenylephrine HCl 10 mg/ (Sodium Chloride) 100 mls @ 24 mls/hr IV TITRATE JOANIE; 40 MCG/MIN PRN Reason: Protocol Lactated Ringer's (Ringers, Lactated) Confirm Administered Dose 1,000 mls @ as directed .ROUTE .ST-MED ONE Stop: 04/13/17 08:54 Magnesium Sulfate 2 gm/ Premix 50 mls @ 25 mls/hr IV ONETIME ONE Stop: 04/13/17 12:17 Last Admin: 04/13/17 11:25 Dose: 25 mls/hr Dextrose/Lactated Ringer's (Dextrose 5%-Lactated Ringers) 1,000 mls @ 125 mls/ hr IV ASDIRECTED JOANIE Stop: 04/13/17 18:37 Last Admin: 04/13/17 16:25 Dose: 125 mls/hr Lactated Ringer's (Ringers, Lactated) 1,000 mls @ 999 mls/hr IV .BOLUS ONE Stop: 04/13/17 22:09 Last Admin: 04/13/17 21:18 Dose: 999 mls/hr Lactated Ringer's (Ringers, Lactated) 1,000 mls @ 150 mls/hr IV ASDIRECTED JOANIE Stop: 04/14/17 08:00 Last Admin: 04/13/17 23:14 Dose: 150 mls/hr Magnesium Sulfate 2 gm/ Premix 50 mls @ 25 mls/hr IV ONETIME ONE Stop: 04/14/17 10:44 Last Admin: 04/14/17 10:41 Dose: 25 mls/hr Magnesium Sulfate 4 gm/ Premix 100 mls @ 50 mls/hr IV ONETIME ONE Stop: 04/14/17 11:31 Last Admin: 04/14/17 16:46 Dose: Not Given Magnesium Sulfate 4 gm/ Premix 100 mls @ 50 mls/hr IV ONETIME ONE Stop: 04/14/17 21:59 Last Admin: 04/14/17 20:05 Dose: 50 mls/hr Ibuprofen (Motrin) 800 mg PO Q8H [facility] Last Admin: 04/14/17 10:45 Dose: Not Given Ibuprofen (Motrin) 800 mg PO Q8H [facility] Last Admin: 04/15/17 06:45 Dose: 800 mg Ketorolac Tromethamine (Toradol) Confirm Administered Dose 30 mg .ROUTE .STK- MED ONE Stop: 04/13/17 06:43 Metoclopramide HCl (Reglan) 10 mg IVPUSH ONETIME ONE Stop: 04/13/17 06:01 Last Admin: 04/13/17 06:49 Dose: 10 mg Morphine Sulfate (Duramorph Pf) 10 mg .ROUTE .STK-MED ONE Stop: 04/13/17 06:41 Ondansetron HCl (Zofran) Confirm Administered Dose 4 mg .ROUTE .STK-MED ONE Stop: 04/13/17 06:43 Oxytocin (Pitocin) Confirm Administered Dose 20 unit .ROUTE .STK-MED ONE Stop: 04/13/17 06:43 Pneumococcal Polyvalent Vaccine (Pneumovax 23) 0.5 ml IM .ONCE ONE Stop: 04/13/17 06:26 Last Admin: 04/15/17 13:29 Dose: Not Given Potassium Chloride (Potassium Chloride Solution) 20 meq PO ONETIME ONE Stop: 04/13/17 10:20 Last Admin: 04/13/17 11:26 Dose: 20 meq Sodium Chloride (Saline Flush) 10 ml FLUSH ASDIRECTED PRN PRN Reason: Keep Vein Open *Q Meaningful Use (DIS) - VTE *Q VTE Criteria *Q: - Stroke *Q Stroke Criteria *Q: - AMI *Q AMI Criteria *Q:
[2017-04-16] MEDS: Simethicone 80 MG Tab.Chew PO SCH (13:44)
[2017-04-16] MEDS: Prenatal Multivitamin with Calcium/Folic Acid/Iron Tab PO SCH (13:44)
[2017-04-16] MEDS: Ibuprofen 800 MG Tab PO SCH (13:44)
== END 2017-04-16 12:40 | disposition home or self-care (01) | DRG 766 ==
LOC: JD.MS 05:37 → JD.OB 10:37
PROVIDERS: ADMIT Obstetrics & Gynecology; ATTEND Obstetrics & Gynecology
PROC: 10D00Z1 Extraction of Products of Conception, Low, Open Approach (ICD-10-PCS; principal; 2017-04-13)
DX: O34.211 Maternal care for low transverse scar from previous cesarean delivery (principal); N85.8 Other specified noninflammatory disorders of uterus; Z3A.38 38 weeks gestation of pregnancy; Z37.2 Twins, both liveborn; Z87.891 Personal history of nicotine dependence; O75.4 Other complications of obstetric surgery and procedures; I49.8 Other specified cardiac arrhythmias; O90.89 Other complications of the puerperium, not elsewhere classified; E83.42 Hypomagnesemia
CPT/HCPCS: 01961; 36415; 80048; 80053; 83735; 85025; 86850; 86900; 86901; 93005; 94762; A9270-GY; J0690; J1100; J1200; J1885; J2270; J2405; J2590; J2765; J3475; J7042; J7120

== ENCOUNTER 2017-05-04 18:37 | Emergency (ER) | payer MEDICAID ==
[2017-05-04] MEDS ORDERED: Sodium Chloride 0.9% 10 ML Syringe FLUSH PRN (19:20)
[2017-05-04] MEDS ORDERED: Ketorolac 30 MG/ML SDV IVPUSH ONE (19:20)
[2017-05-04] MEDS ORDERED: Prochlorperazine 10 MG/2 ML SDV IVPUSH ONE (19:20)
[2017-05-04] MEDS ORDERED: diphenhydrAMINE 50 MG/ML SDV IVPUSH ONE (19:20)
--- NOTE | 2017-05-04 20:10 | CT ---
Head CT Technique: Multiple axial sections through the brain were obtained. Intravenous contrast was not utilized. Comparison: No previous intracranial imaging. Findings: Ventricles along with basal cisterns and sulci over the convexities are within normal limits for the patient's age. No abnormal parenchymal densities are seen. No evidence of intracranial hemorrhage. No midline shift or mass effect is seen. Bone window settings were reviewed which shows minimal mucosal thickening within the anterior ethmoid sinuses. No acute calvarial abnormality is seen. Impression: 1. Minimal sinus findings which are felt to be incidental. 2. Noncontrast head CT study is otherwise unremarkable. Diagnostic code #2
--- NOTE | 2017-05-04 20:33 | EDM.PDOC ---
ED HPI GENERAL MEDICAL PROBLEM - General Chief Complaint: ENT Problem Stated Complaint: POST /HEADACHES Time Seen by Provider: 05/04/17 19:06 Source of Information: Reports: Patient History Limitations: Reports: No Limitations - History of Present Illness INITIAL COMMENTS - FREE TEXT/NARRATIVE: The patient presents with a headache behind both eyes for the past 2 days. She also has some congestion and runny nose and pain to her upper teeth. She has bilateral ear pain. She has no blurred vision or double vision. She has no nausea or vomiting. She has no numbness or weakness. She is post 3 weeks ago. She has no fever, chills or cough. She has had headaches before but not this bad. Onset: Gradual Duration: Day(s): (2) Location: Reports: Head Quality: Reports: Ache Severity: Moderate Improves with: Reports: None Worsens with: Reports: None Associated Symptoms: Denies: Chest Pain, Cough, Fever/Chills, Nausea/Vomiting, Shortness of Breath around eyes/cheekbones Pain Score (Numeric/FACES): 5 - Related Data Allergies Allergy/AdvReac Type Severity Reaction Status Date / Time No Known Allergies Allergy Verified 05/04/17 19:00 Home Meds: Home Meds Pnv No.122/Iron/Folic Acid [ Multi Tablet] 1 each PO DAILY 03/19/17 [ History] Ibuprofen [IJD: Ibuprofen] 600 mg PO Q4H PRN #30 tablet 04/16/17 [Rx] Iron 18 mg PO DAILY 05/04/17 [History] Magnesium 250 mg PO DAILY 05/04/17 [History] Past Medical History - Past Health History Medical/Surgical History: Denies Medical/Surgical History 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 Ovary torsion with removal Social & Family History - Family History Family Medical History: Noncontributory - Tobacco Use Smoking Status *Q: Never Smoker Used Tobacco, but Quit: Yes Month Tobacco Last Used: quit when she found out she was ; August 2016 - Caffeine Use Caffeine Use: Reports: Coffee, Energy Drinks, Soda, Tea - Recreational Drug Use Recreational Drug Use: No ED ROS ENT - Review of Systems Review Of Systems: See Below Constitutional: Reports: No Symptoms HEENT: Reports: Ear Pain Respiratory: Reports: No Symptoms Cardiovascular: Reports: No Symptoms Endocrine: Reports: No Symptoms GI/Abdominal: Reports: No Symptoms : Reports: No Symptoms Musculoskeletal: Reports: No Symptoms Skin: Reports: No Symptoms ED EXAM, ENT - Physical Exam Exam: See Below Exam Limited By: No Limitations General Appearance: Alert, No Apparent Distress Ears: Normal External Exam, Normal Canal, TM Erythema (Mild) Nose: Normal Inspection Mouth/Throat: Normal Inspection Head: Atraumatic, Normocephalic Neck: Normal Inspection Respiratory/Chest: No Respiratory Distress, Lungs Clear, Normal Breath Sounds Cardiovascular: Regular Rate, Rhythm, No Edema, No Murmur GI/Abdominal: Soft, Non-Tender, No Organomegaly, No Mass Back: Normal Inspection Extremities: Normal Inspection Neurological: Alert, Oriented, No Motor/Sensory Deficits Course - Vital Signs Last Recorded V/S: Last Vital Signs Temp 97.5 F 05/04/17 18:56 Pulse 65 05/04/17 18:56 Resp 18 05/04/17 18:56 BP 146/89 H 05/04/17 18:56 Pulse Ox 98 05/04/17 18:56 - Orders/Labs/Meds Orders: Active Orders 24 hr Category Date Time Status Peripheral IV Care [RC] . DIRECTED Care 05/04/17 19:20 Active Sodium Chloride 0.9% [Saline Flush] Med 05/04/17 19:20 Active 10 ml FLUSH ASDIRECTED PRN Peripheral IV Insertion Adult [OM.PC] Routine Oth 05/04/17 19:20 Ordered Medication Orders Sodium Chloride (Saline Flush) 10 ml FLUSH ASDIRECTED PRN PRN Reason: Keep Vein Open Last Admin: 05/04/17 20:15 Dose: 10 ml Meds: Medications Generic Name Dose Route Start Last Admin Trade Name Freq PRN Reason Stop Dose Admin Sodium Chloride 10 ml 05/04/17 19:20 05/04/17 20:15 Saline Flush FLUSH 10 ml ASDIRECTED PRN Administration Keep Vein Open Discontinued Medications Generic Name Dose Route Start Last Admin Trade Name Freq PRN Reason Stop Dose Admin Diphenhydramine HCl 50 mg 05/04/17 19:20 05/04/17 20:13 Benadryl IVPUSH 05/04/17 19:21 50 mg ONETIME ONE Administration Ketorolac Tromethamine 30 mg 05/04/17 19:20 05/04/17 20:08 Toradol IVPUSH 05/04/17 19:21 30 mg ONETIME ONE Administration Prochlorperazine Edisylate 10 mg 05/04/17 19:20 05/04/17 20:16 Compazine IVPUSH 05/04/17 19:21 10 mg ONETIME ONE Administration - Re-Assessments/Exams Free Text/Narrative Re-Assessment/Exam: 05/04/17 20:34 I ordered an IV saline lock, compazine 10mg IV, toradol 30mg IV, benadryl 50mg IV and a CT of her head. The CT shows minimal sinus findings which are felt to be incidental. Noncontrast head CT study is otherwise unremarkable. 05/04/17 20:43 She is pain free now. Departure - Departure Time of Disposition: 20:45 Disposition: Home, Self-Care 01 Condition: Good Clinical Impression: Headache Qualifiers: Headache type: unspecified Headache chronicity pattern: acute headache Intractability: not intractable Qualified Code(s): R51 - Headache - Discharge Information Referrals: PCP,None [Primary Care Provider] - Forms: ED Department Discharge Additional Instructions: Go home to a dark room and rest. Please return if you are worse. Follow up with your doctor as needed. - My Orders Last 24 Hours: My Active Orders 05/04/17 19:20 Peripheral IV Care [RC] . DIRECTED Sodium Chloride 0.9% [Saline Flush] 10 ml FLUSH ASDIRECTED PRN Peripheral IV Insertion Adult [OM.PC] Routine - Assessment/Plan Last 24 Hours: My Active Orders 05/04/17 19:20 Peripheral IV Care [RC] . DIRECTED Sodium Chloride 0.9% [Saline Flush] 10 ml FLUSH ASDIRECTED PRN Peripheral IV Insertion Adult [OM.PC] Routine
== END 2017-05-04 20:55 | disposition home or self-care (01) ==
LOC: JD.ED 18:37
DX: R51 Headache (principal); Z79.899 Other long term (current) drug therapy
CPT/HCPCS: 70450; 96374; 96375; 99284; J0780; J1200; J1885; J7050

== ENCOUNTER 2019-05-22 14:51 | Emergency (ER) | payer MEDICAID ==
--- NOTE | 2019-05-22 15:00 | EDM.PDOC ---
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 Shortly before arrival she had this cramping sensation that started in her back and radiated into her pelvis and vagina. This lasted about 30 minutes and then for the most part has resolved. She is a 8 para 5 2 miscarriages. The patient has not had any vomiting she has had some intermittent nausea, at present she is not nauseated. She denies any burning or frequency with urination no diarrhea or constipation. Review of her records shows a blood type of O+. She has not had any vaginal bleeding spotting or unusual vaginal discharge. 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 Ovary torsion with removal Social & Family History - Family History Family Medical History: Noncontributory - Caffeine Use Caffeine Use: Reports: Coffee, Energy Drinks, Soda, Tea ED ROS GENERAL - Review of Systems Review Of Systems: See Below Constitutional: Reports: No Symptoms HEENT: Reports: No Symptoms Respiratory: Reports: No Symptoms Cardiovascular: Reports: No Symptoms GI/Abdominal: Reports: Abdominal Pain, Nausea. Denies: Constipation, Diarrhea, Vomiting : Reports: No Symptoms ED EXAM - Physical Exam Exam: See Below Exam Limited By: No Limitations General Appearance: Alert, No Apparent Distress Head: Atraumatic, Normocephalic Neck: Normal Inspection, Supple, Non-Tender, Full Range of Motion Respiratory/Chest: No Respiratory Distress, Lungs Clear, Normal Breath Sounds Cardiovascular: Regular Rate, Rhythm, No Edema, No Murmur GI/Abdominal Exam: Normal Bowel Sounds, Soft, Other (She has some vague discomfort on the right side of her abdomen with palpation no rigidity rebound or guarding noted.) Course - Vital Signs Last Recorded V/S: Last Vital Signs Temp 36.8 C 05/22/19 14:59 Pulse 81 05/22/19 14:59 Resp 16 05/22/19 14:59 BP 138/89 05/22/19 14:59 Pulse Ox 100 05/22/19 14:59 - Orders/Labs/Meds Labs: Laboratory Tests 05/22/19 05/22/19 05/22/19 Range/Units 15:30 15:30 16:23 WBC 12.01 H (3.98-10.04) K/mm3 RBC 4.41 (3.98-5.22) M/mm3 Hgb 12.7 (11.2-15.7) gm/dl Hct 39.1 (34.1-44.9) % MCV 88.7 (79.4-94.8) fl MCH 28.8 (25.6-32.2) pg MCHC 32.5 (32.2-35.5) g/dl RDW Std Deviation 39.7 (36.4-46.3) fL Plt Count 339 (182-369) K/mm3 MPV 9.0 L (9.4-12.3) fl Neutrophils % (Manual) 70 H (40-60) % Band Neutrophils % 2 (0-10) % Lymphocytes % (Manual) 24 (20-40) % Atypical Lymphs % 0 % Monocytes % (Manual) 2 (2-10) % Eosinophils % (Manual) 1 (0.7-5.8) % Basophils % (Manual) 1 (0.1-1.2) Platelet Estimate Adequate RBC Morph Comment Normal Sodium 140 (136-145) mEq/L Potassium 3.7 (3.5-5.1) mEq/L Chloride 104 (98-107) mEq/L Carbon Dioxide 26 (21-32) mEq/L Anion Gap 13.7 (5-15) BUN 12 (7-18) mg/dL Creatinine 0.7 (0.55-1.02) mg/dL Est Cr Clr Drug Dosing TNP Estimated GFR (MDRD) > 60 (>60) mL/min BUN/Creatinine Ratio 17.1 (14-18) Glucose 90 (74-106) mg/dL Calcium 8.5 (8.5-10.1) mg/dL Total Bilirubin 0.3 (0.2-1.0) mg/dL AST 9 L (15-37) U/L ALT 18 (14-59) U/L Alkaline Phosphatase 72 (46-116) U/L Total Protein 7.3 (6.4-8.2) g/dl Albumin 3.6 (3.4-5.0) g/dl Globulin 3.7 gm/dL Albumin/Globulin Ratio 1.0 (1-2) HCG, Quant 3341.0 mIU/mL Urine Color Yellow (Yellow) Urine Appearance Clear (Clear) Urine pH 8.5 H (5.0-8.0) Ur Specific [place] 1.025 (1.005-1.030) Urine Protein Negative (Negative) Urine Glucose (UA) Negative (Negative) Urine Ketones Negative (Negative) Urine Occult Blood Negative (Negative) Urine Nitrite Negative (Negative) Urine Bilirubin Negative (Negative) Urine Urobilinogen 0.2 (0.2-1.0) Ur Leukocyte Esterase Negative (Negative) Urine RBC 0-5 (0-5) /hpf Urine WBC 0-5 (0-5) /hpf Ur Squamous Epith Cells 0-5 (0-5) /hpf Urine Bacteria Few (FEW) /hpf Urine Mucus Few (FEW) /hpf Meds: Medications Discontinued Medications Generic Name Dose Route Start Last Admin Trade Name Freq PRN Reason Stop Dose Admin Lactated Ringer's 1,000 mls @ 999 mls/hr 05/22/19 15:24 05/22/19 15:32 Ringers, Lactated IV 05/22/19 16:24 999 mls/hr .BOLUS ONE Administration - Re-Assessments/Exams Free Text/Narrative Re-Assessment/Exam: 05/22/19 16:46 Still pending except a CBC which is nonsuggestive white count is minimally elevated no significant left shift. Repeat abdominal exam shows good bowel sounds her tenderness seems to be much less however is more noticeable in the right lower quadrant no rigidity or rebound noted. 05/22/19 17:17 Urinalysis is not suggestive of infectious process. Quantitative hCG is 3300 which has her in the 2 to 5-week range. I recalculated how far along she is based on the first day of her LMP being April 09 and came up with 6 weeks. This is still a little over 6 weeks. She is not spotting she is not cramping it is recommended that she follow-up with Dr. Louis on have a repeat quantitative hCG to make sure this is trending upward. In the meantime the patient agrees not to do any heavy lifting or vigorous activity should she stay home and mostly rest. Departure - Departure Time of Disposition: : Disposition: Home, Self-Care 01 Clinical Impression: Threatened , Abdominal pain during in first trimester - Discharge Information Referrals: Mauro Louis MD [Primary Care Provider] - Forms: ED Department Discharge Additional Instructions: Return to the emergency room with any questions problems or worsening symptoms. If you start bleeding if you saturate more than 2 pads an hour for 2 hours return to the emergency room. Follow-up with Dr. Louis on preferably in the afternoon and have a repeat quantitative hCG. Get plenty of rest no vigorous activity. No lifting more than 10 pounds, however the less you do the better. Avoid standing for prolonged periods of time Sepsis Event Note - Focused Exam Vital Signs: Vital Signs Temp Pulse Resp BP Pulse Ox 05/22/19 14:59 36.8 C 81 16 138/89 100 Date Exam was Performed: 05/22/19 Time Exam was Performed: :
[2019-05-22] MEDS ORDERED: Lactated Ringers 1,000 ML IV ONE (15:24)
== END 2019-05-22 17:29 | disposition home or self-care (01) ==
LOC: JD.ED 14:51 → SUPCPDRO 14:51 → JD.ED 17:29
DX: O20.0 Threatened abortion (principal); O99.89 Other specified diseases and conditions complicating pregnancy, childbirth and the puerperium; R10.2 Pelvic and perineal pain; Z3A.08 8 weeks gestation of pregnancy
CPT/HCPCS: 36415; 80053; 81001; 84702; 85007; 85027; 96360; 99284; J7120

== ENCOUNTER 2020-01-16 05:32 | Inpatient (IN) | payer MEDICAID ==
--- NOTE | 2020-01-15 21:02 | PCM.LDHP ---
L&D History of Present Illness - General Date of Service: 01/16/20 Admit Problem/Dx: Admission Diagnosis/Problem Admission Diagnosis/Problem section 01/15/20 20:44 Jil is a 29-year-ol 7 para 4025 (1 set of twins) white female at 39- 2/7 weeks gestational age with an NATASHA of 01/21/2020 who was admitted for repeat section. Source of Information: Patient History Limitations: Reports: No Limitations - History of Present Illness Introduction:: Jil is a 29-year-ol 7 para 4025 (1 set of twins) white female at 39-2/7 weeks gestational age with an NATASHA of 01/21/2020 who was admitted for repeat section., Risk, benefits, alternatives of care discussed in detail with patient. She appears to understand, wishes to proceed and has signed the consent. QUALITY ANALYST history: The patient is a 7 para 4-0-2-5 (1 set of twins) who is presently at term, NATASHA 01/21/2020 as based upon an early ultrasound done on 05/23 at 7-3/7 weeks gestational age. It is supported by at least 4 other ultrasounds during the course of which were consistent with her NATASHA by first ultrasound. Patient had normal menarche at approximately age [age]. LMP was somewhat uncertain and started on 04/07/2019. Patient has had 4 previous sections with the first one being done for failure to progress. 1 set of twins. Largest baby was 9 pounds 2 ounces. Patient's first visit was on 07/02/2019 at 11 weeks gestational age. Earlier ultrasound placed her NATASHA at 01/21/2020. Throughout the . Her weight gain was from 210 pounds to 244.6 pounds for a 34 pound increase. Fundal height growth has been a somewhat ahead of schedule at the patient's last 5 visits. Recent ultrasound placed her growth at 60th percentile and estimated the baby to be ahead of schedule as per weight. Vital signs stable. Patient had her T dap on 11/27/2019. She is rubella immune. A few vaccinations occurred in 2015. Pneumococcal vaccination in March 2017. Patient has a history of genital HSV. She has used acyclovir intermittently for this. Is been on acyclovir 400 mg tablets 3 times per day since approximately 36 weeks for viral suppression. Laboratory testing in shows blood to be O+ with a negative antibody screen. First hemoglobin was 12.5 g/dL and platelets are 323,000. Rubella titer showed immunity. RPR was nonreactive. Urine culture was negative. Hepatitis B surface antigen and HIV assays were both negative. Chlamydia and gonorrhea tests were negative. Second trimester labs showed a hemoglobin of 11.6 g/dL and platelets were 263,000. 1 hour GTT was normal at 96. RPR done on 11/12/2019 was negative. Group B strep screen was negative. Allergies: None Medications: 1. Acyclovir 400 mg tablets 1 p.o. 3 times daily prophylactically since gestational age 36 weeks. 2. vitamins 1 daily Past medical history: 1. Miscarriage x2 2. None of right ovary during second with oophorectomy at 14 weeks gestation. Past surgical history: 1. Right oophorectomy for torsion 2. x4. Family history: Mother and father are alive and well. Maternal grandmother is alive with history of diabetes mellitus and hypertension. Paternal grandfather is alive with heart problems and a heart attack history. Paternal grandmother and paternal grandfather family history not known. No significant history as relates to her cousins, uncles and aunts. No anesthesia or bleeding problems noted. Social history: Patient is single. Significant is Ramírez De La Rosa she does not use any significant alcohol, drugs or tobacco. She has worked at [employer] during her . She has taken some college courses. Review of systems: In general patient has no complaints. The baby is active. No significant contractions noted. Skin: Negative Lungs: No infectious symptoms or shortness of breath Cardiovascular: No chest pain or exercise intolerance Breasts: Changes noted with . GI: Negative : changes noted. Musculoskeletal: Negative Neurological: Negative Physical exam: In general the patient is well-developed, well-nourished, pleasant female of stated age in no acute distress. Skin is warm dry without lesions. HEENT, neck and back within normal limits. Lungs are clear with good breath sounds in all lung guevara. Cardiovascular exam shows regular and rhythm without murmurs. Exam deferred, having been done at first visit and found to be normal. Abdomen is gravid with last fundal height at 43 cm. Baby felt to be in a vertex presentation. Genital exam done as patient is anticipating a repeat . Extremities and neurological exam are grossly within normal limits. 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 C/S x4 (2009,2010,2013,2016), H/o Twin delivery 2017. Genital HSV - Infectious Disease History Infectious Disease History: Reports: Herpes - Past Surgical History Female Surgical History: Reports: Section, Other (See Below) Other Female Surgeries/Procedures: x4. Ovary torsion with removal Social & Family History - Family History Family Medical History: Noncontributory - Tobacco Use Smoking Status *Q: Never Smoker Second Hand Smoke Exposure: No - Caffeine Use Caffeine Use: Reports: None - Recreational Drug Use Recreational Drug Use: No H&P Review of Systems - Review of Systems: Review Of Systems: See Below L&D Exam - Exam Exam: See Below Problem List Initiated/Reviewed/Updated: Yes Assessment/Plan Comment:: Assessment: 1. 39-2/7-week intrauterine , history of previous x4 with desire for repeat section. 2. Risk factors for the include history of macrosomic infant x1, history of previous x4, history of genital HSV. 3. Patient plans to breast-feed 4. Tdap given on 11/27/2019 5. Rubella titer shows immunity 6. Patient has been on acyclovir prophylaxis since 36 weeks gestation Plan: 1. Repeat lower uterine segment transverse section through Pfannenstiel skin incision under spinal block. Procedure, risks and benefits discussed with the in detail. She appears understanding and wishes to proceed 2. Preoperative evaluation consist of CBC, type and screen and COVID testing along with RPR. 3. SCDs for DVT prophylaxis 4. Ancef 2 g IV preop for infection prophylaxis 5. If patient decides to breast-feed we will support her decision
[2020-01-16] MEDS ORDERED: Citric Acid/Sodium Citrate Solution 30 ML Cup PO ONE (06:10)
[2020-01-16] MEDS ORDERED: ceFAZolin 2 GM in Premix Bag 1 BAG IV ONE (06:10)
[2020-01-16] MEDS ORDERED: Sodium Chloride 0.9% 10 ML Syringe FLUSH PRN (06:10)
[2020-01-16] MEDS ORDERED: Metoclopramide 10 MG/2 ML SDV IVPUSH ONE (06:10)
[2020-01-16] MEDS ORDERED: Oxytocin/Lactated Ringers 20 UNIT/1,000 ML BAG IV SCH (06:15)
[2020-01-16] MEDS: Lactated Ringers 1,000 ML IV SCH ×2 (06:24→07:38)
[2020-01-16] MEDS ORDERED: Bupivacaine 0.5% 30 ML SDV ONE (07:11)
--- NOTE | 2020-01-16 07:14 | PCM.PREANE ---
Preanesthetic Assessment - Procedure Proposed Procedure: Repeat section (number 5) - Anesthesia/Transfusion/Family Hx Anesthesia History: Prior Anesthesia Without Reaction Transfusion History: No Prior Transfusion(s) - Review of Systems General: No Symptoms Pulmonary: No Symptoms Cardiovascular: No Symptoms Gastrointestinal: No Symptoms Neurological: No Symptoms Other: Reports: None - Physical Assessment NPO Status Date: 01/15/20 NPO Status Time: 23:50 Vital Signs: Last Vital Signs Temp 98.6 F 01/16/20 06:10 Pulse Resp 18 01/16/20 06:10 BP 145/83 H 01/16/20 06:10 Pulse Ox 99 01/16/20 06:10 Height: 1.68 m Weight: 113.852 kg ASA Class: 2 Mental Status: Alert & Oriented x3 Airway Class: Mallampati = 1 Dentition: Reports: Normal Dentition Thyro-Mental Finger Breadths: 3 Mouth Opening Finger Breadths: 3 ROM/Head Extension: Full Lungs: Clear to Auscultation, Normal Respiratory Effort Cardiovascular: Regular Rate, Regular Rhythm - Lab Values: Laboratory Last Values WBC 10.24 K/mm3 (3.98-10.04) H 01/16/20 06:20 RBC 3.79 M/mm3 (3.98-5.22) L 01/16/20 06:20 Hgb 11.0 gm/dl (11.2-15.7) L 01/16/20 06:20 Hct 34.6 % (34.1-44.9) 01/16/20 06:20 MCV 91.3 fl (79.4-94.8) 01/16/20 06:20 MCH 29.0 pg (25.6-32.2) 01/16/20 06:20 MCHC 31.8 g/dl (32.2-35.5) L 01/16/20 06:20 RDW Std Deviation 43.1 fL (36.4-46.3) 01/16/20 06:20 Plt Count 264 K/mm3 (182-369) 01/16/20 06:20 MPV 9.3 fl (9.4-12.3) L 01/16/20 06:20 Neut % (Auto) 67.6 % (34.0-71.1) 01/16/20 06:20 Lymph % (Auto) 23.8 % (19.3-51.7) 01/16/20 06:20 Freeborn % (Auto) 6.3 % (4.7-12.5) 01/16/20 06:20 Eos % (Auto) 1.6 (0.7-5.8) 01/16/20 06:20 Baso % (Auto) 0.2 % (0.1-1.2) 01/16/20 06:20 Neut # (Auto) 6.93 K/mm3 (1.56-6.13) H 01/16/20 06:20 Lymph # (Auto) 2.44 K/mm3 (1.18-3.74) 01/16/20 06:20 Freeborn # (Auto) 0.64 K/mm3 (0.24-0.36) H 01/16/20 06:20 Eos # (Auto) 0.16 K/mm3 (0.04-0.36) 01/16/20 06:20 Baso # (Auto) 0.02 K/mm3 (0.01-0.08) 01/16/20 06:20 COVID-19 (GEORGE) Negative (NEGATIVE) 01/16/20 06:18 - Allergies Allergies/Adverse Reactions: Allergies Allergy/AdvReac Type Severity Reaction Status Date / Time No Known Allergies Allergy Verified 01/15/20 09:39 - Acknowledgements Anesthesia Type Planned: Spinal Pt an Appropriate Candidate for the Planned Anesthesia: Yes Alternatives and Risks of Anesthesia Discussed w Pt/Guardian: Yes Pt/Guardian Understands and Agrees with Anesthesia Plan: Yes PreAnesthesia Questionnaire - Past Health History Medical/Surgical History: Denies Medical/Surgical History SQUAD BOSS History: Reports: , Spontaneous Other OB/BYN History: SAB x2. C/S x4 (2009,2010,2013,2017), H/o Twin delivery 2017. Genital HSV - Infectious Disease History Infectious Disease History: Reports: Herpes - Past Surgical History Female Surgical History: Reports: Section, Other (See Below) Other Female Surgeries/Procedures: x4. Ovary torsion with removal - SUBSTANCE USE Smoking Status *Q: Former Smoker Tobacco Use Within Last Twelve Months: No Second Hand Smoke Exposure: No Recreational Drug Use History: No - HOME MEDS Home Medications: Home Meds No122/Iron/Folic Acid [ Multi Tablet] 1 each PO DAILY 03/19/17 [History] - CURRENT (IN HOUSE) MEDS Current Meds: Current Medications Oxytocin/Lactated Ringer's (Pitocin In Lr 20 Units/1,000 Ml) 20 unit in 1,000 mls @ 500 mls/hr IV TITRATE JOANIE; Protocol Lactated Ringer's (Ringers, Lactated) 1,000 mls @ 125 mls/hr IV ASDIRECTED JOANIE Last Admin: 01/16/20 06:24 Dose: 125 mls/hr Documented by: Sodium Chloride (Saline Flush) 10 ml FLUSH ASDIRECTED PRN PRN Reason: Keep Vein Open Discontinued Medications Citric Acid/Sodium Citrate (Bicitra Solution) 30 ml PO ONETIME ONE Stop: 01/16/20 06:11 Cefazolin Sodium/Dextrose 2 gm (/ Premix) 50 mls @ 100 mls/hr IV ONETIME ONE Stop: 01/16/20 06:39 Metoclopramide HCl (Reglan) 10 mg IVPUSH ONETIME ONE Stop: 01/16/20 06:11
[2020-01-16] MEDS ORDERED: Morphine PF 1 MG/ML Amp ONE (07:23)
[2020-01-16] MEDS ORDERED: Oxytocin 10 Units/1 ML SDV ONE ×2 (07:23→08:28)
[2020-01-16] MEDS ORDERED: ceFAZolin 1 GM Vial ONE (07:23)
[2020-01-16] MEDS ORDERED: Ketorolac 30 MG/ML SDV ONE (07:28)
[2020-01-16] MEDS ORDERED: Lactated Ringers 1,000 ML ONE (08:06)
[2020-01-16] MEDS ORDERED: fentaNYL 100 MCG/2 ML SDV IVPUSH PRN (09:00)
[2020-01-16] MEDS ORDERED: Ondansetron 4 MG/2 ML SDV IVPUSH PRN (09:00)
[2020-01-16] MEDS ORDERED: diphenhydrAMINE 50 MG/ML SDV IVPUSH PRN ×2 (09:00→10:19)
--- NOTE | 2020-01-16 09:00 | PCM.OPNOTE ---
- General Post-Op/Procedure Note Date of Surgery/Procedure: 01/16/20 Operative Procedure(s): Repeat lower uterine segment transverse section through Pfannenstiel skin incision under spinal block. Findings: Patient had moderate scarring in the anterior abdominal wall. Uterus tubes ovaries consistent with term . Significant vascularity noted in the lateral aspects of the uterus. Baby in vertex presentation. Amniotic fluid is clear. Lower uterine segment very thin at 1 to 2 mm. No evidence of uterine scar separation. Baby delivered at 0816 hrs. on 01/16/2020. Male infant weighing 9 pounds 11 ounces with Apgars of 7 and 8. Pre Op Diagnosis: 1. 39-week intrauterine , history of previous section with desire for repeat section Post-Op Diagnosis: Same Anesthesia Technique: Spinal Other Anesthesia Type: Marcaine 0.5% - 20 cc local Primary Surgeon: Mauro Louis Secondary Surgeon: Juan Bustillo Anesthesia Provider: Josh Goodrich Ornamental Metal Fabricator Apprentice: Vanna Edmonds Reason Ornamental Metal Fabricator Apprentice Was Necessary: Retraction, assistance, patient safety, quality of care. Fluid Replacement, Intraop: 1,700 Output, Urine Amount: 150 EBL in mLs: 700 Drain/Tube Comments:: Indwelling bladder catheter Complications: None Condition: Good Free Text/Narrative:: Surgery duration: 35 minutes Surgery duration: Procedure: The patient is appropriately consented. Patient was transferred to the room and placed in a sitting position. Spinal anesthesia was administered. After confirmation of adequate anesthesia patient was placed in a supine position with a wedge under her right side to facilitate left lateral positioning. The patient was prepped and draped in usual fashion after Ybarra catheter was already placed . The anesthetic was checked and found to be adequate. 20 mL of Marcaine 0.5% was injected locally in the Pfannenstiel incision site. The Pfannenstiel skin incision was then made and carried down through skin, subcutaneous and fascial layers. The fascia was then undermined superiorly and inferiorly to allow for adequate operating room. The recti muscles midline and preperitoneal fat was bluntly dissected. Peritoneal cavity was entered longitudinally. The vesicouterine peritoneum was then incised transversely and bladder flap was developed. Myometrium was incised transversely to the level of the amniotic sac. This incision was extended bilaterally in a blunt fashion. The amniotic sac was then ruptured resulting in clear amniotic fluid. A hand is placed in the low uterine segment and the baby's head was brought forth through the incision. The baby was completely delivered using fundal pressure in a routine fashion. The nose and mouth were bulb suctioned. Baby's cord was clamped x2 cut and baby was handed off to nursery nurse Soledad. Placenta was expressed after cord blood was obtained. Uterus was then exteriorized to allow for easier closure. The cervix was assessed and found to be dilated adequately to allow egress of blood. The uterus was closed in 2 layers. The first layer a running locked suture of 0 Monocryl, the second layer a running locked vertical mattress suture of 0 Monocryl. [id number] suture was placed at mid incision to control 1 bleeder. Hemostasis confirmed at this time. Sponge instrument needle counts are correct. The uterus was returned to the abdominal cavity and lateral gutters were cleared of blood. Once again sponge needle counts are correct. The anterior abdominal wall was closed with a #1 PDS suture from angle to angle. The subcutaneous area was found to be free of any bleeders. interrupted sutures of 3-0 Monocryl were used to reapproximate the subcutaneous layer.Skin was closed with a running subcuticular stitch of 3-0 Monocryl in a vertical mattress suture fashion using a Khanh needle. Prineo mesh/glue was then applied to further approximate the incision. It should be noted that patient received 2 g of Ancef preoperatively for infection prophylaxis and had Pitocin infused after delivery of the placenta to facilitate uterine contraction. She also had sequential compression stockings in place for DVT prophylaxis. Patient was discharged from the operating room in satisfactory condition.
--- NOTE | 2020-01-16 09:02 | PCM.POSTAN ---
POST ANESTHESIA ASSESSMENT - MENTAL STATUS Mental Status: Alert, Oriented - VITAL SIGNS Vital Signs: Last Vital Signs Temp 98.3 F 01/16/20 08:54 Pulse 78 01/16/20 08:54 Resp 13 01/16/20 08:54 BP 118/69 01/16/20 08:54 Pulse Ox 100 01/16/20 08:54 - RESPIRATORY Respiratory Status: Respiratory Rate WNL, Airway Patent, O2 Saturation Stable - CARDIOVASCULAR CV Status: Pulse Rate WNL, Blood Pressure Stable - GASTROINTESTINAL GI Status: No Symptoms - PAIN Pain Score: 0 (post SAB) - POST OP HYDRATION Hydration Status: Adequate & Stable
[2020-01-16] MEDS ORDERED: Naloxone 0.4 MG/ML SDV IVPUSH PRN (10:19)
[2020-01-16] MEDS ORDERED: Ondansetron 4 MG/2 ML SDV IV PRN (10:19)
[2020-01-16] MEDS ORDERED: Acetaminophen/oxyCODONE 325-5 MG Tab PO PRN ×2 (10:19)
[2020-01-16] MEDS ORDERED: Dextrose 5%-Lactated Ringers 1,000 ML IV SCH (10:19)
[2020-01-16] MEDS ORDERED: Docusate Sodium 100 MG Cap PO PRN (10:19)
[2020-01-16] MEDS ORDERED: ePHEDrine 50 MG/ML SDV IVPUSH PRN (10:19)
[2020-01-16] MEDS ORDERED: Lactated Ringers 1,000 ML IV ONE (11:21)
[2020-01-16] MEDS: Simethicone 80 MG Tab.Chew PO SCH ×4 (11:56→22:26)
[2020-01-16] MEDS: Ibuprofen 800 MG Tab PO SCH ×2 (19:03→22:26)
[2020-01-17] MEDS: Ibuprofen 800 MG Tab PO SCH ×3 (06:37→22:17)
--- NOTE | 2020-01-17 08:29 | PCM.SN.2 ---
- Free Text/Narrative Note: note: Operative day 1 status post repeat Patient is doing well in the period. Minimal lochia, voiding well, ambulated without problems. Nursing without concerns. Patient is afebrile, vital signs are stable 's are clear with good breath sounds in all lung guevara. Cardiovascular exam shows regular rate rhythm. Abdomen is flat, soft, uterus is below the umbilicus and is firm and nontender. Nae appears to be well-healed. Legs are nontender. Globin is 9.7. Platelets are normal. White blood count is normal. Assessment: recovery going well. Had some lightheadedness yesterday. This resolved almost completely with extra IV fluid. Plan: Routine care. Patient be discharged home within the next 24-48 hours.
[2020-01-17] MEDS: Simethicone 80 MG Tab.Chew PO SCH ×3 (10:15→22:18)
[2020-01-18] MEDS: Simethicone 80 MG Tab.Chew PO SCH ×3 (01:12→13:03)
[2020-01-18] MEDS: Ibuprofen 800 MG Tab PO SCH ×2 (06:21→13:03)
--- NOTE | 2020-01-18 06:52 | PCM.DCSUM1 ---
Discharge Summary - Hospital Course Free Text/Narrative:: Jil is a 29-year-old 7 now para 5-0-2-6 (1 set of twins) who was admitted 2019 at 39-2/7 weeks gestational age with an NATASHA of 01/21/2020 for elective repeat section. Please see admission history and physical for details. Patient underwent a repeat low in segment transverse section through Pfannenstiel skin incision under spinal block. She delivered a viable, barrios, male infant weighing 9 pounds 11 ounces, with Apgars of 7 and 8, a length of 23 inches at 0816 hrs. on 01/16/2020. Patient was noted to have moderate scarring in the anterior abdominal wall. Uterus, tubes and ovaries were consistent with term . Significant vascularity was noted in the lateral aspects of her uterus. Baby was found to be in a vertex presentation. Amniotic fluid was clear. Lower uterine segment was very thin at 1 to 2 mm. There was however, no evidence of uterine scar separation. Postoperatively pain was controlled with Duramorph through the spinal block along with ibuprofen orally. At approximately 20 hours after delivery she was started on Percocet and was continued on ibuprofen and Percocet for the remainder of her hospital stay. Diet was a advanced to regular after surgery. She made good bowel, bladder and ambulatory activity. She is nursing. Vital signs been stable throughout hospital course. Her lochia has been minimal. Her incision appears to be healing well. She is desiring discharge home at this time. Diagnosis: Stroke: No - Discharge Data Discharge Date: 01/18/20 Discharge Disposition: Home, Self-Care 01 Condition: Good - Referral to Home Health Primary Care Physician: Mauro Louis MD - Patient Summary/Data Operative Procedure(s) Performed: Repeat lower uterine segment transverse section through Pfannenstiel skin incision under spinal block. - Patient Instructions Diet: Regular Diet as Tolerated (Nursing diet with increased calories and calcium as recommended) Activity: As Tolerated (No intercourse or tampons until seen back. No lifting greater than 15 pounds or driving a car x1 week.) Driving: Do Not Drive Showering/Bathing: May Shower Wound/Incision Care: Keep Operative Site/Wound Site Clean and Dry Notify Provider of: Fever, Increased Pain, Swelling and Redness, Nausea and/or Vomiting - Discharge Plan Home Medications: Home Meds No122/Iron/Folic Acid [ Multi Tablet] 1 each PO DAILY 03/19/17 [History] Acetaminophen/oxyCODONE [Percocet 325-5 MG] 2 tab PO Q4H PRN tablet 01/18/20 [Rx] Ibuprofen [Motrin] 800 mg PO Q8H tablet 01/18/20 [Rx] Referrals: Mauro Louis MD [Primary Care Provider] - (Return to [facility] weeks.) - Discharge Summary/Plan Comment DC Time >30 min.: No Discharge Summary/Plan Comment: Discharge instructions: 1. Discharge home 2. Regular high-fiber, nursing diet as directed. 3. Activity consist of no lifting greater than 15 pounds. No driving a car x1 week. No intercourse or tampons until seen back. 4. Medications as per medication list in the discharge summary 5. Return to clinic in 2 weeks. - Patient Data Vitals - Most Recent: Last Vital Signs Temp 36.7 C 01/18/20 03:48 Pulse 77 01/17/20 20:29 Resp 15 01/18/20 03:48 BP 148/89 H 01/18/20 03:48 Pulse Ox 99 01/17/20 20:29 Weight - Most Recent: 113.852 kg I&O - Last 24 hours: Intake & Output 01/17/20 01/17/20 01/18/20 14:59 22:59 06:59 Intake Total 360 Output Total 450 Balance -90 Med Orders - Current: Current Medications Diphenhydramine HCl (Benadryl) 25 mg IVPUSH Q6H PRN PRN Reason: Itching or Nausea Last Admin: 01/16/20 12:42 Dose: 25 mg Documented by: Docusate Sodium (Colace) 100 mg PO Q12H PRN PRN Reason: Constipation Ephedrine Sulfate (Ephedrine Sulfate) 5 mg IVPUSH SEECOMMENT PRN PRN Reason: Other Fentanyl (Sublimaze) 50 mcg IVPUSH Q5M PRN PRN Reason: Pain Ibuprofen (Motrin) 800 mg PO Q8H JOANIE Last Admin: 01/18/20 06:21 Dose: Not Given Documented by: Naloxone HCl (Narcan) 0.1 mg IVPUSH SEECOMMENT PRN PRN Reason: Respiratory Depression Ondansetron HCl (Zofran) 4 mg IVPUSH ONETIME PRN PRN Reason: Nausea/Vomiting Last Admin: 01/16/20 11:32 Dose: 4 mg Documented by: Ondansetron HCl (Zofran) 4 mg IV Q4H PRN PRN Reason: Nausea/Vomiting Oxycodone/Acetaminophen (Percocet 325-5 Mg) 1 tab PO Q4H PRN PRN Reason: Pain (moderate 4-6) Last Admin: 01/17/20 10:16 Dose: 1 tab Documented by: Oxycodone/Acetaminophen (Percocet 325-5 Mg) 2 tab PO Q4H PRN PRN Reason: Pain (severe 7-10) Simethicone (Simethicone) 160 mg PO QID JOANIE Last Admin: 01/18/20 01:12 Dose: Not Given Documented by: Discontinued Medications Bupivacaine HCl (Marcaine 0.5%) Confirm Administered Dose 30 ml .ROUTE .STK-MED ONE Stop: 01/16/20 07:12 Last Admin: 01/16/20 08:12 Dose: 20 ml Documented by: Cefazolin Sodium (Ancef) Confirm Administered Dose 2 gm .ROUTE .STK-MED ONE Stop: 01/16/20 07:24 Citric Acid/Sodium Citrate (Bicitra Solution) 30 ml PO ONETIME ONE Stop: 01/16/20 06:11 Last Admin: 01/16/20 07:23 Dose: 30 ml Documented by: Diphenhydramine HCl (Benadryl) 25 mg IVPUSH Q6H PRN PRN Reason: Pruritis Cefazolin Sodium/Dextrose 2 gm (/ Premix) 50 mls @ 100 mls/hr IV ONETIME ONE Stop: 01/16/20 06:39 Last Admin: 01/16/20 10:51 Dose: Not Given Documented by: Oxytocin/Lactated Ringer's (Pitocin In Lr 20 Units/1,000 Ml) 20 unit in 1,000 mls @ 500 mls/hr IV TITRATE JOANIE; Protocol Lactated Ringer's (Ringers, Lactated) 1,000 mls @ 125 mls/hr IV ASDIRECTED JOANIE Last Admin: 01/16/20 07:38 Dose: 125 mls/hr Documented by: Lactated Ringer's (Ringers, Lactated) Confirm Administered Dose 1,000 mls @ as directed .ROUTE .STK-MED ONE Stop: 01/16/20 08:07 Dextrose/Lactated Ringer's (Dextrose 5%-Lactated Ringers) 1,000 mls @ 125 mls/hr IV ASDIRECTED JOANIE Stop: 01/16/20 18:18 Last Admin: 01/16/20 10:50 Dose: 125 mls/hr Documented by: Lactated Ringer's (Ringers, Lactated) 1,000 mls @ 999 mls/hr IV .BOLUS ONE Stop: 01/16/20 12:21 Last Admin: 01/16/20 11:30 Dose: 999 mls/hr Documented by: Ketorolac Tromethamine (Toradol) Confirm Administered Dose 30 mg .ROUTE .STK-MED ONE Stop: 01/16/20 07:29 Metoclopramide HCl (Reglan) 10 mg IVPUSH ONETIME ONE Stop: 01/16/20 06:11 Last Admin: 01/16/20 07:22 Dose: 10 mg Documented by: Morphine Sulfate (Duramorph Pf) Confirm Administered Dose 1 mg .ROUTE .STK-MED ONE Stop: 01/16/20 07:24 Oxytocin (Pitocin) Confirm Administered Dose 20 unit .ROUTE .STK-MED ONE Stop: 01/16/20 07:24 Oxytocin (Pitocin) Confirm Administered Dose 20 unit .ROUTE .STK-MED ONE Stop: 01/16/20 08:29 Sodium Chloride (Saline Flush) 10 ml FLUSH ASDIRECTED PRN PRN Reason: Keep Vein Open
== END 2020-01-18 15:00 | disposition home or self-care (01) | DRG 788 ==
LOC: JD.OB 05:32
PROVIDERS: ADMIT Obstetrics & Gynecology; ATTEND Obstetrics & Gynecology
PROC: 10D00Z1 Extraction of Products of Conception, Low, Open Approach (ICD-10-PCS; principal; 2020-01-16)
DX: O34.211 Maternal care for low transverse scar from previous cesarean delivery (principal); Z20.828 Contact with and (suspected) exposure to other viral communicable diseases; Z37.0 Single live birth; Z3A.39 39 weeks gestation of pregnancy
CPT/HCPCS: 01961; 36415; 59025; 85025; 86592; 86850; 86900; 86901; A9270-GY; J0690; J1200; J1885; J2274; J2405; J2590; J2765; J3490; J7120; J7121; U0002